=== PATIENT | male | born 1960 | race American Indian/Alaskan Native ===

== ENCOUNTER 2021-04-19 04:14 | Inpatient (IN) | payer MEDICAID ==
[2021-04-19] MEDS ORDERED: SODIUM CHLORIDE 0.9% 1000 ML 1,000 ML IV ONE ×2 (05:19→09:05)
[2021-04-19] MEDS ORDERED: PANTOPRAZOLE 40 MG INJ IV ONE (05:19)
--- NOTE | 2021-04-19 05:54 | XRay Report ---
CHEST 1 VIEW INDICATION: GI Bleed. COMPARISON: None FINDINGS: SUPPORT DEVICES: None. HEART: Within normal limits. LUNGS/PLEURA: Mild patchy left greater than right basilar airspace disease. ADDITIONAL FINDINGS: None. IMPRESSION: 1. Lung findings as above. Signer Name: Edu Snyder MD Signed: 04/19/2021 5:50 AM Workstation Name: [id number]
[2021-04-19 06:29] LABS: Hemoglobin 7.8 gm/dl (11.8-15.2); Mean Corpuscular HGB Conc 31 % (32-34); Mean Corpuscular Volume 87 fl (84-94); Platelet Count 138 K/mm3 (140-440); Red Blood Count 2.86 M/mm3 (3.65-5.03); Red Cell Distribution Width 18.9 % (13.2-15.2)
[2021-04-19 06:34] LABS: INR 1.37 (0.87-1.13)
[2021-04-19 06:47] LABS: Alanine Aminotransferase 22 units/L (7-56); Albumin 2.3 g/dL (3.9-5); BUN/Creatinine Ratio 13; Blood Urea Nitrogen 12 mg/dL (9-20); Hemolysis Index 3
[2021-04-19 07:08] LABS: Basophils % (Manual) 0 % (0.0-1.8); Eosinophils % (Manual) 0 % (0.0-4.3); Total Cells Counted 100
[2021-04-19 07:09] LABS: Hypochromasia Few; Poikilocytosis 1+; Target Cells 1+
[2021-04-19 07:10] LABS: Platelet Estimate Consistent w Auto
--- NOTE | 2021-04-19 07:23 | Emergency Department Report ---
ED GI Bleed HPI - General Chief complaint: GI Bleed Stated complaint: VOMITING BLOOD Time Seen by Provider: 04/19/21 07:11 Source: EMS Mode of arrival: Stretcher Limitations: Physical Limitation - History of Present Illness Initial comments: Patient is 61 years old male with past medical history of alcohol abuse, Wernicke's ataxia and hypertension. Patient brought to the emergency room via EMS from a local [place] [facility] for evaluation of upper GI bleed. EMS [place] [facility] staff reported to them that patient had to large amount of dark blo od vomitus x2 mixed with food particles and mucus. Patient was recently admitted to [facility] for metabolic encephalopathy and alcohol withdrawal treatment. Upon arrival to the ER patient is alert however patient is aggressive and stated that he does not want to talk to anyone. MD complaint: gross hematemesis -: Last night Severity scale (0 -10): 0 - Related Data Allergies Allergy/AdvReac Type Severity Reaction Status Date / Time No Known Allergies Allergy Verified 04/19/21 04:21 ED Review of Systems ROS: Stated complaint: VOMITING BLOOD Other details as noted in HPI Comment: Unobtainable due to pts medical conditions ED Past Medical Hx - Past Medical History Previous Medical History?: Yes Hx Hypertension: Yes - Surgical History Past Surgical History?: Yes ED Physical Exam - General Limitations: Physical Limitation General appearance: alert, in no apparent distress - Head Head exam: Present: atraumatic, normocephalic, normal inspection - Eye Eye exam: Present: normal appearance - ENT ENT exam: Present: mucous membranes dry - Neck Neck exam: Present: normal inspection, full ROM. Absent: tenderness, meningismus - Respiratory Respiratory exam: Present: normal lung sounds bilaterally - Cardiovascular Cardiovascular Exam: Present: tachycardia - GI/Abdominal GI/Abdominal exam: Present: soft, normal bowel sounds. Absent: distended, tenderness, guarding, rebound, rigid, organomegaly, mass, bruit, pulsatile mass, hernia - Extremities Exam Extremities exam: Present: normal inspection, full ROM, normal capillary refill - Psychiatric Psychiatric exam: Present: agitated - Skin Skin exam: Present: warm, intact, normal color ED Course Vital Signs 04/19/21 04:22 Temperature 98.6 F Pulse Rate 116 H Respiratory 16 Rate Blood Pressure 140/82 [Left] O2 Sat by Pulse 99 Oximetry ED Medical Decision Making - Lab Data Result diagrams: 04/19/21 06:02 04/19/21 06:02 - EKG Data -: EKG Interpreted by Nc EKG shows normal: sinus rhythm Rate: tachycardia - EKG Data Interpretation: no acute changes - Radiology Data Radiology results: report reviewed - Medical Decision Making Patient is 61 years old male with past medical history of alcohol abuse, Wernicke's ataxia and hypertension. Patient brought to the emergency room via EMS from a local [place] [facility] for evaluation of upper GI bleed. EMS stated that [place] [facility] staff reported to them that patient had to large amount of dark blood vomitus x2 mixed with food particles and mucus. Patient was recently admitted to [facility] for metabolic encephalopathy and alcohol withdrawal treatment. Upon arrival to the ER patient is alert however patient is aggressive and stated that he does not want to talk to anyone. No vomiting observed in the ER however patient does have some bloody mucus on his T-shirt. Patient started on normal saline, Protonix. Chest x-ray showed bilateral lower lobe infiltrate. Patient received Levaquin. COVID-19 test has been ordered also. Labs reviewed and showed leukocytosis of 24,000. His hemoglobin is 7.8 with platelets of 138. I discussed the patient with Dr. Heide Marin, test hole driller on-call and he stated that he will follow up with the patient. I discussed the patient with Dr. Gomez, he advised to admit the patient to Dr. Slade. Critical Care Time: Yes Critical care time in (mins) excluding proc time.: 35 Critical care attestation.: If time is entered above; I have spent that time in minutes in the direct care of this critically ill patient, excluding procedure time. ED Disposition Clinical Impression: GI bleed, Bilateral pneumonia Disposition: ADMITTED INPATIENT Is pt being admited?: Yes Condition: Stable Instructions: Bacterial Pneumonia (ED) Referrals: AURORA ROMO MD [Primary Care Provider] - 3-5 Days Forms: Accompanied Note
[2021-04-19] MEDS ORDERED: LORazepam 2 MG/ML VIAL IV ONE (09:12)
--- NOTE | 2021-04-19 11:25 | History and Physical Report ---
History of Present Illness Date of examination: 04/19/21 Date of admission: 04/19/21 Chief complaint: GI bleed History of present illness: Patient is 61 years old male with past medical history of alcohol abuse, Wernicke's ataxia and hypertension brought to the emergency room via EMS from a local [facility] for upper GI bleed. skilled nursing staff reported that patient had to large amount of dark blood vomitus x2 mixed with food particles and mucus. Patient was recently admitted to [facility] ICU for metabolic encephalopathy and alcohol withdrawal treatment. Upon arrival to the ER patient is alert however patient is aggressive and stated that he does not want to talk to anyone. In the ER Patient started on normal saline, Protonix. Chest x-ray showed bilateral lower lobe infiltrate. Patient received Levaquin. COVID-19 test has been ordered also. Labs reviewed and showed leukocytosis of 24,000. His hemoglobin is 7.8 with platelets of 138. Consulted cash management clerk on- call and admitted for further evaluation and mx. Review of System: Constitutional: no fever, no chills, no weight loss Ears, eyes, nose, mouth and throat: no nasal congestion, no nasal discharge, no sinus pressure, no vision change, no red eye. Neck: No neck pain or rigidity. Cardiovascular: No chest pain, no orthopnea, no palpitations, no leg swelling Respiratory: No shortness of breath, no cough, no congestion, no wheezing Gastrointestinal: no abdominal pain, no nausea, + bloody vomiting Genitourinary : no dysuria, no hematuria Musculoskeletal: no joint swelling or muscle ache Integumentary: no rash, no pruritis Neurological: no parathesias, no numbness, no tingling Endocrine: no cold or heat intolerance, no polyuria or polydipsia Hematologic/Lymphatic: no easy bruising, no easy bleeding, no gland swelling Allergic/Immunologic: no urticaria, no angioedema. Past History Past Medical History: hypertension Past Surgical History: Other (unable to get any history) Social history: alcohol abuse Family history: other (unknown) Medications and Allergies Allergies Allergy/AdvReac Type Severity Reaction Status Date / Time No Known Allergies Allergy Verified 04/19/21 04:21 Exam - Physical Exam Narrative exam: GENERAL: well-developed and well-nourished -[place]oc[place] male lying on bed appeared to be in no discomfort. HEENT: Normocephalic. Atraumatic. No conjunctival congestion or icterus. Patient has moist mucous membranes. NECK: Supple. Trachea midline. CHEST/LUNGS: Clear to auscultated bilaterally, breathing nonlabored. No wheezes crackles or rhonchi. HEART/CARDIOVASCULAR: Regular in rate and rhythm. S1 and S2 positive. ABDOMEN: Abdomen is soft, nontender. Patient has normal bowel sounds. SKIN: There is no rash. Warm and dry. NEURO: No focal motor deficit. Follows command. MUSCULOSKELETAL: No joint effusion or tenderness. EXTRIMITY: No edema, no cyanosis or clubbing. PSYCH: Cooperative - Constitutional Vitals: Temp Pulse Resp BP Pulse Ox 98.6 F 116 H 16 140/82 99 04/19/21 04:22 04/19/21 04:22 04/19/21 04:22 04/19/21 04:22 04/19/21 04:22 Results - Labs CBC & Chem 7: 04/20/21 22:37 04/20/21 03:40 Labs: Abnormal lab results 04/19/21 04/19/21 04/19/21 Range/Units 06:02 06:02 06:02 WBC 24.2 H (4.5-11.0) K/mm3 RBC 2.86 L (3.65-5.03) M/mm3 Hgb 7.8 L (11.8-15.2) gm/dl Hct 25.0 L (35.5-45.6) % MCH 27 L (28-32) pg MCHC 31 L (32-34) % RDW 18.9 H (13.2-15.2) % Plt Count 138 L (140-440) K/mm3 Seg Neuts % (Manual) 95.0 H (40.0-70.0) % Lymphocytes % (Manual) 4.0 L (13.4-35.0) % Seg Neutrophils # Man 23.0 H (1.8-7.7) K/mm3 Lymphocytes # (Manual) 1.0 L (1.2-5.4) K/mm3 PT 18.3 H (12.2-14.9) Sec. INR 1.37 H (0.87-1.13) Chloride 111.5 H (98-107) mmol/L Carbon Dioxide 19 L (22-30) mmol/L Glucose 132 H (75-100) mg/dL Lactic Acid (0.7-2.0) mmol/L Calcium 8.0 L (8.4-10.2) mg/dL Total Bilirubin 2.30 H (0.1-1.2) mg/dL Alkaline Phosphatase 132 H (35-129) units/L Albumin 2.3 L (3.9-5) g/dL 04/19/21 Range/Units 06:02 WBC (4.5-11.0) K/mm3 RBC (3.65-5.03) M/mm3 Hgb (11.8-15.2) gm/dl Hct (35.5-45.6) % MCH (28-32) pg MCHC (32-34) % RDW (13.2-15.2) % Plt Count (140-440) K/mm3 Seg Neuts % (Manual) (40.0-70.0) % Lymphocytes % (Manual) (13.4-35.0) % Seg Neutrophils # Man (1.8-7.7) K/mm3 Lymphocytes # (Manual) (1.2-5.4) K/mm3 PT (12.2-14.9) Sec. INR (0.87-1.13) Chloride (98-107) mmol/L Carbon Dioxide (22-30) mmol/L Glucose (75-100) mg/dL Lactic Acid 3.80 H* (0.7-2.0) mmol/L Calcium (8.4-10.2) mg/dL Total Bilirubin (0.1-1.2) mg/dL Alkaline Phosphatase (35-129) units/L Albumin (3.9-5) g/dL - Imaging and Cardiology Chest x-ray: report reviewed (Bilateral infiltrates left greater than right) Assessment and Plan --Acute GI bleed Continue to follow H&H, placed on PPI, GI consulted IV fluid hydration, follow clinically --h/o alcohol abuse, will place on as needed Ativan Place on folic acid and thiamine -- Bilateral pneumonia with COVID PUI Ordered empiric antibiotics, ordered for COVID PCR Order inflammatory markers --Elevated lactic acid, IV fluid Likely due to underlying infection --Sepsis, with leukocytosis elevated lactic acid and bilateral infiltrates Continue empiric antibiotics for now, ordered for COVID PCR --Anemia likely due to acute on chronic blood loss Follow H&H, transfuse as needed --DVT prophylaxis, SCD
[2021-04-19] MEDS ORDERED: LORazepam 2 MG/ML VIAL ONE (11:37)
[2021-04-19 15:07] LABS: Hematocrit 24.5 % (35.5-45.6); Hemoglobin 7.6 gm/dl (11.8-15.2)
[2021-04-19] MEDS: PANTOPRAZOLE 40 MG INJ IV SCH (22:51)
[2021-04-19] MEDS: D5W/0.9% NACL 1,000 ML IV SCH (22:51)
[2021-04-20] MEDS: cefTRIAXone/NS 1 GM/50 ML 1 GM/50 ML BAG IV SCH ×2 (00:23→10:16)
[2021-04-20 00:50] LABS: Hematocrit 23.5 % (35.5-45.6); Hemoglobin 7.3 gm/dl (11.8-15.2)
[2021-04-20] MEDS: AZITHROMYCIN/NS 500 MG/250 ML 500 MG/250 ML BAG IV SCH ×2 (01:03→10:19)
[2021-04-20 05:43] LABS: Hemoglobin 7.2 gm/dl (11.8-15.2); Mean Corpuscular HGB Conc 32 % (32-34); Mean Corpuscular Volume 87 fl (84-94); Platelet Count 113 K/mm3 (140-440); Red Blood Count 2.64 M/mm3 (3.65-5.03); Red Cell Distribution Width 18.9 % (13.2-15.2)
[2021-04-20 06:00] LABS: Blood Urea Nitrogen 10 mg/dL (9-20); Calcium 8.2 mg/dL (8.4-10.2); Hemolysis Index 4
[2021-04-20 06:03] LABS: BUN/Creatinine Ratio 20
[2021-04-20 06:45] LABS: Basophils % (Manual) 0 % (0.0-1.8); Eosinophils % (Manual) 0 % (0.0-4.3); Total Cells Counted 100
[2021-04-20 06:46] LABS: Hypochromasia 1+; Poikilocytosis 1+
[2021-04-20 06:47] LABS: Platelet Estimate Consistent w Auto; Target Cells 1+
[2021-04-20] MEDS: PANTOPRAZOLE 40 MG INJ IV SCH ×2 (10:17→22:00)
[2021-04-20 15:53] LABS: Hematocrit 23.3 % (35.5-45.6); Hemoglobin 7.4 gm/dl (11.8-15.2)
--- NOTE | 2021-04-20 17:36 | Progress Note ---
Assessment and Plan 61 years old male with past medical history of alcohol abuse, Wernicke's ataxia and hypertension brought to the emergency room via EMS from a local residential for upper GI bleed. In the ER Patient started on normal saline, Protonix. [facility]ah[facility] st x-ray showed bilateral lower lobe infiltrate. Labs reviewed and showed leukocytosis of 24,000. His hemoglobin is 7.8 with platelets of 138. Consulted script editor on-call and admitted for further evaluation and mx. Assessment and plan: --Acute GI bleed Continue to follow H&H, placed on PPI, GI consulted IV fluid hydration, follow clinically Planned for EGD tomorrow --h/o alcohol abuse, will place on as needed Ativan Place on folic acid and thiamine -- Bilateral pneumonia with COVID PUI Ordered empiric antibiotics, ordered for COVID PCR -pending follow inflammatory markers --Elevated lactic acid, IV fluid Likely due to underlying infection --Sepsis, with leukocytosis elevated lactic acid and bilateral infiltrates Continue empiric antibiotics for now, follow COVID 19 PCR --Anemia likely due to acute on chronic blood loss Follow H&H, transfuse as needed --DVT prophylaxis, SCD Daily clinical course: 04/20: Follow H&H, continue IV fluid, continue PPI. Follow COVID-19 PCR -if result positive then will initiate COVID-19 protocol. Plan for EGD tomorrow. Subjective Date of service: 04/20/21 Interval history: Patient seen and examined. Medical records and medication list reviewed. No acute event overnight noted by the RN. Plan for EGD tomorrow, pending COVID-19 PCR Objective - Exam Narrative Exam: GENERAL: well-developed and well-nourished -[place]ib[place] male lying on bed appeared to be in no discomfort. HEENT: Normocephalic. Atraumatic. No conjunctival congestion or icterus. Patient has moist mucous membranes. NECK: Supple. Trachea midline. CHEST/LUNGS: Clear to auscultated bilaterally, breathing nonlabored. No wheezes crackles or rhonchi. HEART/CARDIOVASCULAR: Regular in rate and rhythm. S1 and S2 positive. ABDOMEN: Abdomen is soft, nontender. Patient has normal bowel sounds. SKIN: There is no rash. Warm and dry. NEURO: No focal motor deficit. Follows command. MUSCULOSKELETAL: No joint effusion or tenderness. EXTRIMITY: No edema, no cyanosis or clubbing. PSYCH: Cooperative - Constitutional Vitals: Vital Signs - 12hr 04/20/21 04/20/21 04/20/21 05:45 06:00 06:24 Pulse Rate Respiratory Rate Blood Pressure 140/86 140/86 133/80 O2 Sat by Pulse 93 100 99 Oximetry 04/20/21 04/20/21 04/20/21 06:30 06:46 07:00 Pulse Rate 101 H 98 H 101 H Respiratory 19 15 15 Rate Blood Pressure 138/90 136/79 137/83 O2 Sat by Pulse 98 98 100 Oximetry 04/20/21 04/20/21 04/20/21 07:16 07:30 07:46 Pulse Rate 98 H 97 H 94 H Respiratory 17 15 14 Rate Blood Pressure 134/86 150/84 154/82 O2 Sat by Pulse 100 98 99 Oximetry 04/20/21 04/20/21 04/20/21 08:00 08:15 08:30 Pulse Rate Respiratory 18 22 16 Rate Blood Pressure 146/82 134/83 144/87 O2 Sat by Pulse 99 97 100 Oximetry 04/20/21 04/20/21 04/20/21 08:46 09:00 09:15 Pulse Rate Respiratory 19 13 18 Rate Blood Pressure 140/83 139/78 142/89 O2 Sat by Pulse 98 100 100 Oximetry 04/20/21 04/20/21 04/20/21 09:30 09:46 10:00 Pulse Rate Respiratory 16 22 16 Rate Blood Pressure 143/81 143/91 141/87 O2 Sat by Pulse 100 Oximetry 04/20/21 04/20/21 04/20/21 10:16 10:30 10:45 Pulse Rate Respiratory 16 14 13 Rate Blood Pressure 145/83 149/79 140/77 O2 Sat by Pulse Oximetry 04/20/21 04/20/21 04/20/21 11:01 11:15 11:31 Pulse Rate Respiratory 17 15 14 Rate Blood Pressure 140/76 136/80 129/80 O2 Sat by Pulse Oximetry - Labs CBC & Chem 7: 04/20/21 22:37 04/20/21 03:40 Labs: Abnormal lab results 04/19/21 04/20/21 04/20/21 Range/Units 17:47 00:20 00:20 WBC (4.5-11.0) K/mm3 RBC (3.65-5.03) M/mm3 Hgb 7.3 L (11.8-15.2) gm/dl Hct 23.5 L (35.5-45.6) % MCH (28-32) pg RDW (13.2-15.2) % Plt Count (140-440) K/mm3 Seg Neuts % (Manual) (40.0-70.0) % Lymphocytes % (Manual) (13.4-35.0) % Seg Neutrophils # Man (1.8-7.7) K/mm3 Lymphocytes # (Manual) (1.2-5.4) K/mm3 Potassium (3.6-5.0) mmol/L Chloride (98-107) mmol/L Carbon Dioxide (22-30) mmol/L Creatinine (0.8-1.3) mg/dL Glucose (75-100) mg/dL Lactic Acid 3.50 H* 2.50 H* (0.7-2.0) mmol/L Calcium (8.4-10.2) mg/dL 04/20/21 04/20/21 04/20/21 Range/Units 03:40 03:40 07:26 WBC 19.2 H (4.5-11.0) K/mm3 RBC 2.64 L (3.65-5.03) M/mm3 Hgb 7.2 L (11.8-15.2) gm/dl Hct 23.0 L (35.5-45.6) % MCH 27 L (28-32) pg RDW 18.9 H (13.2-15.2) % Plt Count 113 L (140-440) K/mm3 Seg Neuts % (Manual) 94.0 H (40.0-70.0) % Lymphocytes % (Manual) 4.0 L (13.4-35.0) % Seg Neutrophils # Man 18.0 H (1.8-7.7) K/mm3 Lymphocytes # (Manual) 0.8 L (1.2-5.4) K/mm3 Potassium 3.5 L (3.6-5.0) mmol/L Chloride 111.5 H (98-107) mmol/L Carbon Dioxide 19 L (22-30) mmol/L Creatinine 0.5 L (0.8-1.3) mg/dL Glucose 56 L (75-100) mg/dL Lactic Acid 2.20 H* (0.7-2.0) mmol/L Calcium 8.2 L (8.4-10.2) mg/dL 04/20/21 Range/Units 15:43 WBC (4.5-11.0) K/mm3 RBC (3.65-5.03) M/mm3 Hgb 7.4 L (11.8-15.2) gm/dl Hct 23.3 L (35.5-45.6) % MCH (28-32) pg RDW (13.2-15.2) % Plt Count (140-440) K/mm3 Seg Neuts % (Manual) (40.0-70.0) % Lymphocytes % (Manual) (13.4-35.0) % Seg Neutrophils # Man (1.8-7.7) K/mm3 Lymphocytes # (Manual) (1.2-5.4) K/mm3 Potassium (3.6-5.0) mmol/L Chloride (98-107) mmol/L Carbon Dioxide (22-30) mmol/L Creatinine (0.8-1.3) mg/dL Glucose (75-100) mg/dL Lactic Acid (0.7-2.0) mmol/L Calcium (8.4-10.2) mg/dL
[2021-04-20 23:55] LABS: Hematocrit 24.7 % (35.5-45.6); Hemoglobin 7.9 gm/dl (11.8-15.2)
[2021-04-21] MEDS: LORazepam 2 MG/ML VIAL IV PRN (01:55)
[2021-04-21] MEDS: D5W/0.9% NACL 1,000 ML IV SCH (04:48)
--- NOTE | 2021-04-21 08:43 | Consultation ---
DATE OF CONSULTATION: 04/20/2021 REFERRING PHYSICIAN: Dr. Yenny Hernandez. INDICATION: Upper GI bleeding. HISTORY OF PRESENT ILLNESS: A 61-year-old black male with history of alcohol abuse, Wernicke's ataxia as well as hypertension. The [facility] from [facility] with signs and symptoms of upper GI bleed. The patient reportedly had 2 dark hematemesis. This included this morning. He reported no bright red blood. No melena. The patient with no history of variceal bleeding or other issues of that kind in the past. The patient subsequently brought to the Emergency Room for further evaluation and GI consulted. PAST MEDICAL HISTORY: 1. Alcohol liver disease. 2. Wernicke's ataxia. 3. Hypertension. MEDICATIONS: Reviewed and updated in chart. ALLERGIES: No known drug allergies. SOCIAL HISTORY: Alcohol abuse in the past. FAMILY HISTORY: Negative for colon cancer, IBD, or liver disease. REVIEW OF SYSTEMS: GENERAL: Reports weakness. HEENT: Denies visual complaints or tinnitus. PULMONARY: Denies shortness of breath, chest pain. GASTROINTESTINAL: Reported hematemesis, none since in the Emergency Room. All points of 10-point review of systems otherwise negative. PHYSICAL EXAMINATION: VITAL SIGNS: Temperature of 98.7, pulse 77, respiration 18, blood pressure 140/90. GENERAL: Fairly nourished with no acute distress. HEENT: Pupils round and reactive. PULMONARY: Clear to auscultation bilaterally. CARDIOVASCULAR: Regular rate and rhythm. Normal S1, S2. ABDOMEN: Positive bowel sounds. SKIN: No obvious rashes. LABORATORY DATA: Pertinent for white count of 19, hemoglobin and hematocrit of 7.1 and 23, platelet count of 113. INR of 1.37. Sodium of 142, potassium 3.5, chloride 111, CO2 of 19, BUN and creatinine of 10 and 0.5. AST and ALT of 37 and 22 with an alkaline phosphatase of 132 and a total bilirubin of 2.3. ASSESSMENT: A 61-year-old male with a history of alcohol abuse in the past, now presents with hematemesis and signs of upper GI bleed. The patient is otherwise stable and no further bleeding since reported at facility. PLAN: 1. PPI IV b.i.d. 2. Follow hematocrit and transfuse as needed. 3. Clear liquid diet. 4. Based on progress, n.p.o. and EGD in a.m. 5. Further recommendation based on progress results of the above. TID: [id number] RECEIPT: [id number] ANÍBAL/SOMMER/DANNY GROVER
[2021-04-21] MEDS: PANTOPRAZOLE 40 MG INJ IV SCH ×2 (09:57→23:16)
[2021-04-21] MEDS: cefTRIAXone/NS 1 GM/50 ML 1 GM/50 ML BAG IV SCH (09:57)
[2021-04-21] MEDS: AZITHROMYCIN/NS 500 MG/250 ML 500 MG/250 ML BAG IV SCH (09:59)
[2021-04-21] MEDS ORDERED: WATER FOR IRRIG STERILE 250 ML BOTTLE IR ONE (12:25)
[2021-04-21] MEDS ORDERED: WATER FOR IRRIG STERILE 1,000 ML BOTTLE ONE (12:25)
[2021-04-21] MEDS ORDERED: LIDOCAINE MPF (2%) 20 MG/1 ML VIAL 5 ML ONE (13:28)
[2021-04-21] MEDS ORDERED: propofoL 200 MG/20 ML VIAL IV ONE ×3 (13:28→13:29)
--- NOTE | 2021-04-21 13:38 | Anesthesia Day of Surgery ---
Anesthesia Day of Surgery - Day of Surgery Patient Examined: Yes Patient H&P Reviewed: Yes Patient is NPO: Yes
--- NOTE | 2021-04-21 13:42 | Anesthesia Consultation ---
Anesthesia Consult and Med Hx Date of service: 04/21/21 - Airway Intubation Access Assessment: Probably Good (Unable to assess airway) - Pre-Operative Health Status ASA Pre-Surgery Classification: ASA3 Proposed Anesthetic Plan: MAC - Cardiovascular System Hx Hypertension: Yes - Central Nervous System Hx Neuromuscular Disorder: Yes (Wernicke's ataxia) Hx Psychiatric Problems: Yes - Gastrointestinal Hx Ulcer: Yes (GI Bleed) - Hematic Hx Anemia: Yes - Other Systems Hx Alcohol Use: Yes - Additional Comments Anesthesia Medical History Comments: Pt agitated and in restraints. halfway resident. Patient was recently admitted to [facility] ICU for metabolic encephalopathy and alcohol withdrawal treatment. COVID POSITIVE
--- NOTE | 2021-04-21 15:30 | Post Operative Note ---
Pre-op diagnosis: gi bleed Post-op diagnosis: same Findings: EGD: grade I-II varices w/o stigmata - possible healed M-W tear - mild gastritis - negative other Procedure: EGD Anesthesia: MAC Surgeon: TRISH RATLIFF Estimated blood loss: none Pathology: list Specimen disposition: to lab Condition: stable Disposition: floor
--- NOTE | 2021-04-21 15:39 | Post Anesthesia Evaluation ---
- Post Anesthesia Evaluation Patient Participated: Yes Airway Patent: Yes Stable Respiratory Function: Yes Nausea/Vomiting: No Temp > 96.8F: Yes Pain Manageable: Yes Adequeate Hydration: Yes Anesthesia Complications: No Block Receding Appropriately: Not Applicable Patient on Ventilator: No
--- NOTE | 2021-04-21 17:29 | Operative Report ---
DATE OF SURGERY: 04/21/2021 PROCEDURE: EGD. INDICATIONS: 1. Anemia. 2. Gastrointestinal bleed. MEDICATIONS: Propofol per PRIVATE BRANCH EXCHANGE OPERATOR. COMPLICATIONS: None. DESCRIPTION OF PROCEDURE: The patient was done as a case in the Emergency Room. The patient had the procedure discussed with him at length. All risks, complications, and benefits discussed, after which the patient signed for the procedure to be performed. The patient was placed in a left lateral decubitus position. A mouth block was placed in the patient's oral cavity. After adequate sedation with medications as above, endoscope was placed in the mouth and brought to the level of second portion of duodenum. Retroflexion view performed. The patient's vital signs remained stable throughout the procedure. FINDINGS: There was one column of grade 1-2 varices noted in the [id number] esophagus. No bleeding stigmata was noted. Small hiatal hernia and gastroesophageal junction at 40 cm from the gums. The GE junction showed a possibly healed Yesy-Davidson tear without obvious bleeding stigmata. The esophagus otherwise appeared to be normal. Mild gastritis noted in stomach. The stomach otherwise appeared to be normal. Duodenum appeared to be normal. Retroflexion view performed in the stomach showed no other pathology other than noted above. The patient tolerated the procedure well. No complications during the procedure. IMPRESSION: 1. 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 2. Possibly healed Yesy-Davidson tear. 3. Mild gastritis. 4. Otherwise normal EGD. RECOMMENDATIONS: 1. PPI everyday. 2. Advance diet. 3. If H and H stable in a.m., okay to discharge from a GI standpoint. 4. We will follow. TID: [id number] RECEIPT: [id number] CAB/ARV/IQB MTDD
--- NOTE | 2021-04-21 17:32 | Consultation ---
History of Present Illness - Reason for Consult Consult date: 04/21/21 COVID-19 Requesting physician: PAVAN CORDOVA - History of Present Illness The patient is a 61-year-old male with alcohol abuse, Wernicke's encephalopathy, hypertension was admitted from the retirement due to upper GI bleed. Chest x- ray showed bilateral pneumonia, COVID-19 test came back positive, hence infectious diseases was consulted. Labs revealed leukocytosis with WBC 24.2, anemia with hemoglobin of 7.8, platelets 113. Lactic acidosis. ID was consulted for COVID-19. Patient is on room air. 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 Review of Systems: reviewed in the chart, unable to obtain, minimize risk of transmission Past History Past Medical History: hypertension Past Surgical History: Other (unable to get any history) Social history: alcohol abuse Family history: other (unknown) Medications and Allergies Allergies Allergy/AdvReac Type Severity Reaction Status Date / Time No Known Allergies Allergy Verified 04/19/21 04:21 Active Meds: Active Medications Ascorbic Acid (Ascorbic Acid 500 Mg Tab) 1,000 mg PO BID RICO Cholecalciferol (Cholecalciferol (Vit D3) 5,000 Unit Tab) 5,000 unit PO DAILY RICO Dextrose/Sodium Chloride (D5ns) 1,000 mls @ 75 mls/hr IV DIRECT RICO Last Admin: 04/21/21 04:48 Dose: 75 mls/hr Azithromycin (Zithromax/Ns) 500 mg in 250 mls @ 250 mls/hr IV Q24HR RICO Stop: 04/23/21 10:59 Last Admin: 04/21/21 09:59 Dose: 250 mls/hr Ceftriaxone Sodium (Rocephin/Ns 2 Gm/100 Ml) 2 gm in 100 mls @ 200 mls/hr IV Q24H RICO; Protocol Stop: 04/23/21 10:29 Lorazepam (Lorazepam 2 Mg/Ml Vial) 2 mg IV Q4H PRN PRN Reason: Agitation Last Admin: 04/21/21 01:55 Dose: 2 mg Pantoprazole Sodium (Pantoprazole 40 Mg Inj) 40 mg IV BID RICO Last Admin: 04/21/21 09:57 Dose: 40 mg Physical Examination - Physical Exam Narrative exam: Physical Exam (reviewed in chart to minimize risk of transmission) Constitutional: deferred Head, Ears, Nose: deferred Eyes: deferred Neck: deferred Oral: deferred Cardiovascular: deferred Respiratory: deferred GI: deferred Musculoskeletal: deferred Skin: deferred Hem/Lymphatic: deferred Psych: deferred Neurological: deferred - Constitutional Vitals: Vital Signs Temp Pulse Resp BP Pulse Ox 98.7 F 100 H 20 122/86 100 04/21/21 12:35 04/21/21 16:31 04/21/21 16:31 04/21/21 16:31 04/21/21 16:31 Temperature -Last 24 Hours Temperature 98.7 F Results - Labs CBC & Chem 7: 04/20/21 22:37 04/20/21 03:40 Labs: Abnormal lab results 04/20/21 04/20/21 Range/Units 08:20 22:37 Hgb 7.9 L (11.8-15.2) gm/dl Hct 24.7 L (35.5-45.6) % Coronavirus (PCR) Positive A (Negative) - Imaging and Cardiology Chest x-ray: report reviewed, image reviewed (mild patchy R airspace disease) Assessment and Plan Cultures: SARS CoV2 PCR: Positive 04/19/2021 blood culture: No growth A/P: 61-year-old male with alcohol abuse, Wernicke's encephalopathy, hypertension was admitted from the retirement due to upper GI bleed: #Bilateral pneumonia: Possibly aspiration and COVID-19 #Acute GI bleed, status post EGD with evidence of varices, healed Yesy-Davidson tear and mild gastritis. #Sepsis: Secondary to above #Acute blood loss anemia Recs: Not hypoxic, no indication for steroids or Remdesivir Continue empiric antibiotics for possible aspiration pneumonia ordered CRP, D-dimer, ferritin, procalcitonin Norman Miguel MD, FACP, [facility] O: [phone] F: [phone]
--- NOTE | 2021-04-21 17:48 | Progress Note ---
Assessment and Plan 61 years old male with past medical history of alcohol abuse, Wernicke's ataxia and hypertension brought to the emergency room [facility] for [facility] GI bleed. In the ER Patient started on normal saline, Protonix. Zahra st x-ray showed bilateral lower lobe infiltrate. Labs reviewed and showed leukocytosis of 24,000. His hemoglobin is 7.8 with platelets of 138. Consulted documentum consultant on-call and admitted for further evaluation and mx. Assessment and plan: --Acute GI bleed Continue to follow H&H, placed on PPI, GI consulted IV fluid hydration, follow clinically s/p EGD: with evidence of varices, healed Yesy-Davidson tear and mild gastritis. --h/o alcohol abuse, will place on as needed Ativan Place on folic acid and thiamine -- Bilateral pneumonia with COVID and aspiration PNA cont empiric antibiotics, +ve for COVID follow inflammatory markers --COVID 19 positive patient on RA, ID consulted Not a candidate for dexamethasone and remdesivir --Elevated lactic acid, IV fluid Likely due to underlying infection --Sepsis, with leukocytosis elevated lactic acid and bilateral infiltrates Continue empiric antibiotics for now, follow COVID 19 PCR --Anemia likely due to acute on chronic blood loss Follow H&H, transfuse as needed --DVT prophylaxis, SCD Daily clinical course: 04/20: Follow H&H, continue IV fluid, continue PPI. Follow COVID-19 PCR -if result positive then will initiate COVID-19 protocol. Plan for EGD tomorrow. 04/21: status post EGD with evidence of varices, healed Yesy-Davidson tear and mild gastritis. Cont PPI. Positive for COVID 19, ID consulted. Pt on RA, cont iv abx. Subjective Date of service: 04/21/21 Interval history: Patient seen and examined. Medical records and medication list reviewed. No acute event overnight noted by the RN. s/p EGD, +ve COVID-19 PCR Objective - Exam Narrative Exam: GENERAL: well-developed and well-nourished -[place] male lying on bed appeared to be in no discomfort. HEENT: Normocephalic. Atraumatic. No conjunctival congestion or icterus. Patient has moist mucous membranes. NECK: Supple. Trachea midline. CHEST/LUNGS: Clear to auscultated bilaterally, breathing nonlabored. No wheezes crackles or rhonchi. HEART/CARDIOVASCULAR: Regular in rate and rhythm. S1 and S2 positive. ABDOMEN: Abdomen is soft, nontender. Patient has normal bowel sounds. SKIN: There is no rash. Warm and dry. NEURO: No focal motor deficit. Follows command. MUSCULOSKELETAL: No joint effusion or tenderness. EXTRIMITY: No edema, no cyanosis or clubbing. PSYCH: Cooperative - Constitutional Vitals: Vital Signs - 12hr 04/21/21 04/21/21 04/21/21 05:45 06:00 06:01 Temperature Pulse Rate 97 H 96 H 93 H Respiratory 13 18 17 Rate Blood Pressure 172/89 180/86 Blood Pressure 154/89 [Left] O2 Sat by Pulse 100 Oximetry 04/21/21 04/21/21 04/21/21 06:15 06:30 06:45 Temperature Pulse Rate 96 H 83 89 Respiratory 16 14 15 Rate Blood Pressure 154/89 165/73 140/80 Blood Pressure [Left] O2 Sat by Pulse 97 100 Oximetry 04/21/21 04/21/21 04/21/21 07:00 07:15 07:30 Temperature Pulse Rate 94 H 89 85 Respiratory 15 17 16 Rate Blood Pressure 142/103 146/81 165/75 Blood Pressure [Left] O2 Sat by Pulse 98 98 95 Oximetry 04/21/21 04/21/21 04/21/21 07:45 08:00 08:15 Temperature Pulse Rate 95 H 89 91 H Respiratory 18 15 16 Rate Blood Pressure 176/75 142/81 149/71 Blood Pressure [Left] O2 Sat by Pulse 98 97 97 Oximetry 04/21/21 04/21/21 04/21/21 08:30 08:45 09:00 Temperature Pulse Rate 91 H 93 H 89 Respiratory 17 12 16 Rate Blood Pressure 159/79 163/77 149/68 Blood Pressure [Left] O2 Sat by Pulse 97 100 96 Oximetry 04/21/21 04/21/21 04/21/21 09:15 09:30 09:45 Temperature Pulse Rate 93 H 91 H 85 Respiratory 16 18 17 Rate Blood Pressure 159/83 140/87 143/93 Blood Pressure [Left] O2 Sat by Pulse 97 98 96 Oximetry 04/21/21 04/21/21 04/21/21 10:01 10:15 10:31 Temperature Pulse Rate 88 91 H 93 H Respiratory 14 17 16 Rate Blood Pressure 136/87 135/82 156/84 Blood Pressure [Left] O2 Sat by Pulse 98 98 97 Oximetry 04/21/21 04/21/21 04/21/21 10:45 11:01 11:15 Temperature Pulse Rate 94 H 97 H 90 Respiratory 16 16 18 Rate Blood Pressure 135/86 139/82 148/85 Blood Pressure [Left] O2 Sat by Pulse 98 98 98 Oximetry 04/21/21 04/21/21 04/21/21 11:31 11:45 12:01 Temperature Pulse Rate 91 H 97 H 98 H Respiratory 15 18 17 Rate Blood Pressure 138/83 142/85 142/84 Blood Pressure [Left] O2 Sat by Pulse 97 98 98 Oximetry 04/21/21 04/21/21 04/21/21 12:15 12:31 12:35 Temperature 98.7 F Pulse Rate 95 H 101 H 96 H Respiratory 17 16 15 Rate Blood Pressure 145/89 153/94 153/94 Blood Pressure [Left] O2 Sat by Pulse 98 100 97 Oximetry 04/21/21 04/21/21 04/21/21 12:45 13:01 13:15 Temperature Pulse Rate 94 H 86 86 Respiratory 22 16 14 Rate Blood Pressure 151/87 141/85 138/81 Blood Pressure [Left] O2 Sat by Pulse 98 98 100 Oximetry 04/21/21 04/21/21 04/21/21 13:31 13:45 14:00 Temperature Pulse Rate 80 96 H 85 Respiratory 12 18 12 Rate Blood Pressure 135/84 141/87 108/74 Blood Pressure [Left] O2 Sat by Pulse 99 100 100 Oximetry 04/21/21 04/21/21 04/21/21 14:01 14:15 14:31 Temperature Pulse Rate 88 92 H 92 H Respiratory 17 21 20 Rate Blood Pressure 116/72 126/81 143/88 Blood Pressure [Left] O2 Sat by Pulse 98 98 97 Oximetry 04/21/21 04/21/21 04/21/21 14:45 15:01 15:15 Temperature Pulse Rate 92 H 82 81 Respiratory 16 16 16 Rate Blood Pressure 140/82 141/81 136/81 Blood Pressure [Left] O2 Sat by Pulse 97 99 97 Oximetry 04/21/21 04/21/21 04/21/21 15:31 15:45 16:01 Temperature Pulse Rate 85 94 H 96 H Respiratory 15 17 18 Rate Blood Pressure 140/85 130/88 136/76 Blood Pressure [Left] O2 Sat by Pulse 98 100 99 Oximetry 04/21/21 04/21/21 16:15 16:31 Temperature Pulse Rate 95 H 100 H Respiratory 19 20 Rate Blood Pressure 125/86 122/86 Blood Pressure [Left] O2 Sat by Pulse 99 100 Oximetry - Labs CBC & Chem 7: 04/21/21 18:21 04/21/21 18:21 Labs: Abnormal lab results 04/20/21 04/20/21 Range/Units 08:20 22:37 Hgb 7.9 L (11.8-15.2) gm/dl Hct 24.7 L (35.5-45.6) % Coronavirus (PCR) Positive A (Negative)
[2021-04-21 18:47] LABS: Hematocrit 26.7 % (35.5-45.6); Hemoglobin 8.5 gm/dl (11.8-15.2); Mean Corpuscular HGB Conc 32 % (32-34); Mean Corpuscular Volume 87 fl (84-94); Platelet Count 143 K/mm3 (140-440); Red Blood Count 3.08 M/mm3 (3.65-5.03); Red Cell Distribution Width 19.3 % (13.2-15.2)
[2021-04-21 19:04] LABS: Blood Urea Nitrogen 7 mg/dL (9-20); Calcium 8.8 mg/dL (8.4-10.2); Hemolysis Index 4
[2021-04-21 19:06] LABS: C-Reactive Protein 4.1 mg/dL (0.00-1.30)
[2021-04-21 19:07] LABS: C-Reactive Protein 4.1 mg/dL (0.00-1.30)
[2021-04-21 19:29] LABS: BUN/Creatinine Ratio 14
--- NOTE | 2021-04-21 22:21 | Cat Scan Report ---
CTA CHEST WITH CONTRAST INDICATION / CLINICAL INFORMATION: Pt has an elevated D-dimer. TECHNIQUE: Axial CT images were obtained through the chest after injection of 100 cc Omnipaque 350 IV contrast. 3 plane MIP and/or 3D reconstructions were produced. All CT scans at this location are per formed using CT dose reduction for ALARA by means of automated exposure control. COMPARISON: Chest x-ray 04/19/2021 FINDINGS: Exam is severely limited due to poor bolus timing. PULMONARY ARTERIES: No large central pulmonary emboli. THORACIC AORTA: No significant abnormality. HEART: No pericardial effusion. CORONARY ARTERY CALCIFICATION: Severe. MEDIASTINUM / EMIR: No significant abnormality. PLEURA: No pleural effusion. No pneumothorax. LUNGS: Scattered bilateral pulmonary opacities. Trace left pleural effusion. There are mild secretion s in the airways. ADDITIONAL FINDINGS: None. UPPER ABDOMEN: Scattered small hypodensities throughout the liver are nonspecific but may represent c ysts. SKELETAL STRUCTURES: Degenerative changes of the spine. No aggressive osseous lesion. IMPRESSION: 1. Exam is severely limited due to poor bolus timing. There is no large central pulmonary embolism id entified. 2. Scattered bilateral airspace opacities compatible with pneumonia. 3. Trace left pleural effusion. 4. Incidental findings as above. Signer Name: Idris Lai MD Signed: 04/21/2021 10:17 PM Workstation Name: [id number]
[2021-04-21] MEDS: ASCORBIC ACID 500 MG TAB PO SCH (23:16)
[2021-04-22] MEDS: LORazepam 2 MG/ML VIAL IV PRN ×3 (02:29→17:30)
[2021-04-22 08:10] LABS: Basophils # (Auto) 0.1 K/mm3 (0.0-0.1); Eosinophils # (Auto) 0.1 K/mm3 (0.0-0.4); Eosinophils % (Auto) 2.2 % (0.0-4.3); Hematocrit 25.7 % (35.5-45.6); Hemoglobin 8.2 gm/dl (11.8-15.2); Lymphocytes # (Auto) 1.9 K/mm3 (1.2-5.4); Mean Corpuscular HGB Conc 32 % (32-34); Mean Corpuscular Volume 86 fl (84-94); Monocytes # (Auto) 0.6 K/mm3 (0.0-0.8); Monocytes % (Auto) 11.4 % (0.0-7.3); Platelet Count 136 K/mm3 (140-440); Red Cell Distribution Width 19.1 % (13.2-15.2)
[2021-04-22 08:24] LABS: BUN/Creatinine Ratio 15; Blood Urea Nitrogen 6 mg/dL (9-20); Calcium 8.6 mg/dL (8.4-10.2); Hemolysis Index 8
[2021-04-22] MEDS ORDERED: POTASSIUM CHLORIDE ER 20 MEQ TAB PO NR (09:30)
[2021-04-22] MEDS: CHOLECALCIFEROL (VIT D3) 5,000 UNIT TAB PO SCH (10:00)
[2021-04-22] MEDS: POTASSIUM CHLORIDE 10 MEQ 10 MEQ/100 ML BAG IV SCH ×4 (10:00→15:00)
[2021-04-22] MEDS ORDERED: SODIUM CHLORIDE 0.9% 1000 ML 1,000 ML ONE (10:04)
[2021-04-22] MEDS: PANTOPRAZOLE 40 MG INJ IV SCH (11:06)
[2021-04-22] MEDS: ASCORBIC ACID 500 MG TAB PO SCH ×2 (11:06→23:47)
[2021-04-22] MEDS: AZITHROMYCIN/NS 500 MG/250 ML 500 MG/250 ML BAG IV SCH (11:15)
[2021-04-22] MEDS: cefTRIAXone/NS 2 GM/100 ML 2 GM/100 ML BAG IV SCH (11:24)
--- NOTE | 2021-04-22 14:27 | Gastroenterology Progress Note ---
Assessment and Plan GI: signs UGI bleed, egd w/ Grade I-II varices w/o bleeding stigmata and healed M-W tear - continue PPI qd - follow h/h, transfuse as needed - diet as toelrated 2. Liver: etoh abuse - continue CIWA \ - if stable in am ok to dc from GI standpoint Subjective Date of service: 04/22/21 Interval history: - no signs GI bleed or other GI complaints overnight Objective - Constitutional Vitals: Temp Pulse Resp BP Pulse Ox 98.5 F 98 H 17 106/80 99 04/22/21 14:21 04/22/21 14:01 04/22/21 14:01 04/22/21 14:01 04/22/21 14:01 General appearance: no acute distress - EENT Eyes: PERRL - Respiratory Respiratory: bilateral: CTA - Cardiovascular Rhythm: regular Heart Sounds: Present: S1 & S2 - Gastrointestinal General gastrointestinal: Present: soft, non-tender, non-distended - Labs CBC & Chem 7: 04/22/21 07:13 04/22/21 07:13 Labs: Laboratory Results - last 24 hr 04/21/21 04/21/21 04/21/21 18:21 18:21 18:21 WBC 5.7 RBC 3.08 L Hgb 8.5 L Hct 26.7 L MCV 87 MCH 28 MCHC 32 RDW 19.3 H Plt Count 143 Lymph % (Auto) [place] % (Auto) Eos % (Auto) Baso % (Auto) Lymph # (Auto) [place] # (Auto) Eos # (Auto) Baso # (Auto) Seg Neutrophils % Seg Neutrophils # D-Dimer 1634.68 H Sodium 140 Potassium 3.3 L Chloride 107.3 H Carbon Dioxide 18 L Anion Gap 18 BUN 7 L Creatinine 0.5 L Estimated GFR > 60 BUN/Creatinine Ratio 14 Glucose 82 Calcium 8.8 Ferritin Lactate Dehydrogenase C-Reactive Protein Procalcitonin 04/21/21 04/21/21 04/21/21 18:21 18:21 18:21 WBC RBC Hgb Hct MCV MCH MCHC RDW Plt Count Lymph % (Auto) [place] % (Auto) Eos % (Auto) Baso % (Auto) Lymph # (Auto) [place] # (Auto) Eos # (Auto) Baso # (Auto) Seg Neutrophils % Seg Neutrophils # D-Dimer Sodium Potassium Chloride Carbon Dioxide Anion Gap BUN Creatinine Estimated GFR BUN/Creatinine Ratio Glucose 82 Calcium Ferritin 133.0 Lactate Dehydrogenase 266 H C-Reactive Protein 4.10 H Procalcitonin 1.31 04/21/21 04/21/21 04/21/21 18:21 18:21 18:21 WBC RBC Hgb Hct MCV MCH MCHC RDW Plt Count Lymph % (Auto) [place] % (Auto) Eos % (Auto) Baso % (Auto) Lymph # (Auto) [place] # (Auto) Eos # (Auto) Baso # (Auto) Seg Neutrophils % Seg Neutrophils # D-Dimer 1666.92 H Sodium Potassium Chloride Carbon Dioxide Anion Gap BUN Creatinine Estimated GFR BUN/Creatinine Ratio Glucose 82 Calcium Ferritin 132.0 Lactate Dehydrogenase 270 H C-Reactive Protein 4.10 H Procalcitonin 04/22/21 04/22/21 04/22/21 07:13 07:13 07:13 WBC 5.5 RBC 3.00 L Hgb 8.2 L Hct 25.7 L MCV 86 MCH 27 L MCHC 32 RDW 19.1 H Plt Count 136 L Lymph % (Auto) 35.0 [place] % (Auto) 11.4 H Eos % (Auto) 2.2 Baso % (Auto) 2.0 H Lymph # (Auto) 1.9 [place] # (Auto) 0.6 Eos # (Auto) 0.1 Baso # (Auto) 0.1 Seg Neutrophils % 49.4 Seg Neutrophils # 2.7 D-Dimer 1662.58 H Sodium 141 Potassium 3.1 L Chloride 107.6 H Carbon Dioxide 19 L Anion Gap 18 BUN 6 L Creatinine 0.4 L Estimated GFR > 60 BUN/Creatinine Ratio 15 Glucose 88 Calcium 8.6 Ferritin Lactate Dehydrogenase C-Reactive Protein 3.80 H Procalcitonin 04/22/21 04/22/21 07:13 07:13 WBC RBC Hgb Hct MCV MCH MCHC RDW Plt Count Lymph % (Auto) [place] % (Auto) Eos % (Auto) Baso % (Auto) Lymph # (Auto) [place] # (Auto) Eos # (Auto) Baso # (Auto) Seg Neutrophils % Seg Neutrophils # D-Dimer Sodium Potassium Chloride Carbon Dioxide Anion Gap BUN Creatinine Estimated GFR BUN/Creatinine Ratio Glucose Calcium Ferritin 125.9 Lactate Dehydrogenase C-Reactive Protein Procalcitonin 0.88
--- NOTE | 2021-04-22 15:27 | Progress Note ---
Assessment and Plan Cultures: SARS CoV2 PCR: Positive 04/19/2021 blood culture: No growth A/P: 61-year-old male with alcohol abuse, Wernicke's encephalopathy, hypertension was admitted from the residential due to upper GI bleed: #Bilateral pneumonia: Possibly aspiration and COVID-19 #Acute GI bleed, status post EGD with evidence of varices, healed Yesy-Davidson tear and mild gastritis. #Sepsis: Secondary to above. WBC normalized. #Acute blood loss anemia Recs: Not hypoxic, no indication for steroids or Remdesivir WBC improved, continue empiric antibiotics for possible aspiration pneumonia, if discharged, do PO Augmentin 875 mg BID x 3 days Norman Miguel MD, FACP, [facility] O: [phone] F: [phone] Subjective Date of service: 04/22/21 Interval history: No fever. D-dimer 1662, CRP 3.8, procalcitonin 0.88, ferritin 125, LDH 270 Objective - Exam Narrative Exam: Physical Exam (reviewed in chart to minimize risk of transmission) Constitutional: deferred Head, Ears, Nose: deferred Eyes: deferred Neck: deferred Oral: deferred Cardiovascular: deferred Respiratory: deferred GI: deferred Musculoskeletal: deferred Skin: deferred Hem/Lymphatic: deferred Psych: deferred Neurological: deferred - Constitutional Vitals: Vital Signs Temp Pulse Resp BP Pulse Ox 98.5 F 98 H 17 106/80 99 04/22/21 14:21 04/22/21 14:01 04/22/21 14:01 04/22/21 14:01 04/22/21 14:01 Temperature -Last 24 Hours Temperature 98.5 F Temperature 97.6 F Temperature 98.5 F - Labs CBC & Chem 7: 04/22/21 07:13 04/22/21 07:13 Labs: Abnormal lab results 04/21/21 04/21/21 04/21/21 Range/Units 18:21 18:21 18:21 RBC 3.08 L (3.65-5.03) M/mm3 Hgb 8.5 L (11.8-15.2) gm/dl Hct 26.7 L (35.5-45.6) % MCH (28-32) pg RDW 19.3 H (13.2-15.2) % Plt Count (140-440) K/mm3 [place] % (Auto) (0.0-7.3) % Baso % (Auto) (0.0-1.8) % D-Dimer 1634.68 H (0-234) ng/mlDDU Potassium 3.3 L (3.6-5.0) mmol/L Chloride 107.3 H (98-107) mmol/L Carbon Dioxide 18 L (22-30) mmol/L BUN 7 L (9-20) mg/dL Creatinine 0.5 L (0.8-1.3) mg/dL Lactate Dehydrogenase (91-180) units/L C-Reactive Protein (0.00-1.30) mg/dL 04/21/21 04/21/21 04/21/21 Range/Units 18:21 18:21 18:21 RBC (3.65-5.03) M/mm3 Hgb (11.8-15.2) gm/dl Hct (35.5-45.6) % MCH (28-32) pg RDW (13.2-15.2) % Plt Count (140-440) K/mm3 [place] % (Auto) (0.0-7.3) % Baso % (Auto) (0.0-1.8) % D-Dimer 1666.92 H (0-234) ng/mlDDU Potassium (3.6-5.0) mmol/L Chloride (98-107) mmol/L Carbon Dioxide (22-30) mmol/L BUN (9-20) mg/dL Creatinine (0.8-1.3) mg/dL Lactate Dehydrogenase 266 H 270 H (91-180) units/L C-Reactive Protein 4.10 H 4.10 H (0.00-1.30) mg/dL 04/22/21 04/22/21 04/22/21 Range/Units 07:13 07:13 07:13 RBC 3.00 L (3.65-5.03) M/mm3 Hgb 8.2 L (11.8-15.2) gm/dl Hct 25.7 L (35.5-45.6) % MCH 27 L (28-32) pg RDW 19.1 H (13.2-15.2) % Plt Count 136 L (140-440) K/mm3 [place] % (Auto) 11.4 H (0.0-7.3) % Baso % (Auto) 2.0 H (0.0-1.8) % D-Dimer 1662.58 H (0-234) ng/mlDDU Potassium 3.1 L (3.6-5.0) mmol/L Chloride 107.6 H (98-107) mmol/L Carbon Dioxide 19 L (22-30) mmol/L BUN 6 L (9-20) mg/dL Creatinine 0.4 L (0.8-1.3) mg/dL Lactate Dehydrogenase (91-180) units/L C-Reactive Protein 3.80 H (0.00-1.30) mg/dL
[2021-04-22] MEDS: PANTOPRAZOLE 40 MG TAB PO SCH (17:19)
--- NOTE | 2021-04-22 18:42 | Progress Note ---
Assessment and Plan Assessment and plan: #Acute GI bleed #Anemia likely due to acute on chronic blood loss Continue to follow H&H and transfuse if hemoglobin <7 IV fluid hydration, follow clinically Gastroenterology consulted; appreciate recs S/p EGD: with evidence of varices, healed Yesy-Davidson tear and mild ga stritis. Continue pantoprazole 40 mg daily #Alcohol dependence Unable to counseling aide patient on alcohol cessation given sedation after recent Ativan. Will reattempt tomorrow. Continue CIWA protocol Continue folic acid and thiamine #COVID-19 infection #Aspiration pneumonia versus pneumonitis Cont azithromycin 500 mg daily and Rocephin 2 g daily. Follow inflammatory markers every 2-3 days. Patient not currently a candidate for dexamethasone or remdesivir. Infectious disease consulted; appreciate recs. Continue to monitor. #Lactic acidosis Likely due to underlying infection Pending repeat stat lactic acidosis. Previously 2.2 #Sepsis In the setting of leukocytosis, elevated lactic acid, and bilateral infiltrates. Likely secondary to pneumonia. Continue azithromycin 500 mg daily and Rocephin 2 g daily #Advanced care planning -Disease education conducted, care plan discussed, diagnoses discussed, prognosis discussed, and patient acknowledges understanding with care plan -Time: +30 min Disposition Plan: Continue medical management Total Time Spent with Patient (Minutes): 45 minutes History Interval history: No acute events overnight. Hospitalist Physical - Constitutional Vitals: Temp Pulse Resp BP Pulse Ox 98.8 F 97 H 18 109/73 95 04/22/21 17:26 04/22/21 16:00 04/22/21 17:28 04/22/21 16:00 04/22/21 17:28 General appearance: Present: no acute distress - EENT Eyes: Present: PERRL, EOM intact ENT: hearing intact, clear oral mucosa, poor dentition - Neck Neck: Present: supple, normal ROM - Respiratory Respiratory effort: normal Respiratory: bilateral: diminished (On 2-3 L nasal cannula) - Cardiovascular Rhythm: regular Heart Sounds: Present: S1 & S2 - Extremities Extremities: no ischemia, pulses intact, pulses symmetrical, No edema, normal temperature, normal color Extremity abnormal: other (Stage I decubitus ulcer on left heel) Peripheral Pulses: within normal limits - Abdominal General gastrointestinal: soft, non-tender, non-distended, normal bowel sounds - Integumentary Integumentary: Present: clear, warm, dry - Psychiatric Psychiatric: other (Unable to assess given sedation) - Neurologic Neurologic: other (Unable to assess given sedation) - Allied Health Allied health notes reviewed: nursing Results - Labs CBC & Chem 7: 04/22/21 07:13 04/22/21 07:13 Labs: Laboratory Last Values WBC 5.5 K/mm3 (4.5-11.0) 04/22/21 07:13 RBC 3.00 M/mm3 (3.65-5.03) L 04/22/21 07:13 Hgb 8.2 gm/dl (11.8-15.2) L 04/22/21 07:13 Hct 25.7 % (35.5-45.6) L 04/22/21 07:13 MCV 86 fl (84-94) 04/22/21 07:13 MCH 27 pg (28-32) L 04/22/21 07:13 MCHC 32 % (32-34) 04/22/21 07:13 RDW 19.1 % (13.2-15.2) H 04/22/21 07:13 Plt Count 136 K/mm3 (140-440) L 04/22/21 07:13 Lymph % (Auto) 35.0 % (13.4-35.0) 04/22/21 07:13 [place] % (Auto) 11.4 % (0.0-7.3) H 04/22/21 07:13 Eos % (Auto) 2.2 % (0.0-4.3) 04/22/21 07:13 Baso % (Auto) 2.0 % (0.0-1.8) H 04/22/21 07:13 Lymph # (Auto) 1.9 K/mm3 (1.2-5.4) 04/22/21 07:13 [place] # (Auto) 0.6 K/mm3 (0.0-0.8) 04/22/21 07:13 Eos # (Auto) 0.1 K/mm3 (0.0-0.4) 04/22/21 07:13 Baso # (Auto) 0.1 K/mm3 (0.0-0.1) 04/22/21 07:13 Add Manual Diff Complete 04/20/21 03:40 Total Counted 100 04/20/21 03:40 Seg Neutrophils % 49.4 % (40.0-70.0) 04/22/21 07:13 Seg Neuts % (Manual) 94.0 % (40.0-70.0) H 04/20/21 03:40 Band Neutrophils % 0 % 04/20/21 03:40 Lymphocytes % (Manual) 4.0 % (13.4-35.0) L 04/20/21 03:40 Reactive Lymphs % (Man) 0 % 04/20/21 03:40 Monocytes % (Manual) 2.0 % (0.0-7.3) 04/20/21 03:40 Eosinophils % (Manual) 0 % (0.0-4.3) 04/20/21 03:40 Basophils % (Manual) 0 % (0.0-1.8) 04/20/21 03:40 Metamyelocytes % 0 % 04/20/21 03:40 Myelocytes % 0 % 04/20/21 03:40 Promyelocytes % 0 % 04/20/21 03:40 Blast Cells % 0 % 04/20/21 03:40 Nucleated RBC % Not Reportable 04/20/21 03:40 Seg Neutrophils # 2.7 K/mm3 (1.8-7.7) 04/22/21 07:13 Seg Neutrophils # Man 18.0 K/mm3 (1.8-7.7) H 04/20/21 03:40 Band Neutrophils # 0.0 K/mm3 04/20/21 03:40 Lymphocytes # (Manual) 0.8 K/mm3 (1.2-5.4) L 04/20/21 03:40 Abs React Lymphs (Man) 0.0 K/mm3 04/20/21 03:40 Monocytes # (Manual) 0.4 K/mm3 (0.0-0.8) 04/20/21 03:40 Eosinophils # (Manual) 0.0 K/mm3 (0.0-0.4) 04/20/21 03:40 Basophils # (Manual) 0.0 K/mm3 (0.0-0.1) 04/20/21 03:40 Metamyelocytes # 0.0 K/mm3 04/20/21 03:40 Myelocytes # 0.0 K/mm3 04/20/21 03:40 Promyelocytes # 0.0 K/mm3 04/20/21 03:40 Blast Cells # 0.0 K/mm3 04/20/21 03:40 WBC Morphology Not Reportable 04/20/21 03:40 Hypersegmented Neuts Not Reportable 04/20/21 03:40 Hyposegmented Neuts Not Reportable 04/20/21 03:40 Hypogranular Neuts Not Reportable 04/20/21 03:40 Smudge Cells Not Reportable 04/20/21 03:40 Toxic Granulation Not Reportable 04/20/21 03:40 Toxic Vacuolation Not Reportable 04/20/21 03:40 Dohle Bodies Not Reportable 04/20/21 03:40 Pelger-Huet Anomaly Not Reportable 04/20/21 03:40 Dixie Rods Not Reportable 04/20/21 03:40 Platelet Estimate Consistent w auto 04/20/21 03:40 Clumped Platelets Not Reportable 04/20/21 03:40 Plt Clumps, EDTA Not Reportable 04/20/21 03:40 Large Platelets Not Reportable 04/20/21 03:40 Giant Platelets Not Reportable 04/20/21 03:40 Platelet Satelliting Not Reportable 04/20/21 03:40 Plt Morphology Comment Not Reportable 04/20/21 03:40 RBC Morphology Not Reportable 04/20/21 03:40 Dimorphic RBCs Not Reportable 04/20/21 03:40 Polychromasia Not Reportable 04/20/21 03:40 Hypochromasia 1+ 04/20/21 03:40 Poikilocytosis 1+ 04/20/21 03:40 Anisocytosis Not Reportable 04/20/21 03:40 Microcytosis Not Reportable 04/20/21 03:40 Macrocytosis Not Reportable 04/20/21 03:40 Spherocytes Not Reportable 04/20/21 03:40 Pappenheimer Bodies Not Reportable 04/20/21 03:40 Sickle Cells Not Reportable 04/20/21 03:40 Target Cells 1+ 04/20/21 03:40 Tear Drop Cells Not Reportable 04/20/21 03:40 Ovalocytes Not Reportable 04/20/21 03:40 Helmet Cells Not Reportable 04/20/21 03:40 George-Diller Bodies Not Reportable 04/20/21 03:40 [place] Rings Not Reportable 04/20/21 03:40 [place] Cells Not Reportable 04/20/21 03:40 Bite Cells Not Reportable 04/20/21 03:40 Crenated Cell Not Reportable 04/20/21 03:40 Elliptocytes Not Reportable 04/20/21 03:40 Acanthocytes (Spur) Few 04/20/21 03:40 Rouleaux Not Reportable 04/20/21 03:40 Hemoglobin C Crystals Not Reportable 04/20/21 03:40 Schistocytes Not Reportable 04/20/21 03:40 Malaria parasites Not Reportable 04/20/21 03:40 Jaun Bodies Not Reportable 04/20/21 03:40 Hem Pathologist Commnt No 04/20/21 03:40 PT 18.3 Sec. (12.2-14.9) H 04/19/21 06:02 INR 1.37 (0.87-1.13) H 04/19/21 06:02 D-Dimer 1662.58 ng/mlDDU (0-234) H 04/22/21 07:13 Sodium 141 mmol/L (137-145) 04/22/21 07:13 Potassium 3.1 mmol/L (3.6-5.0) L 04/22/21 07:13 Chloride 107.6 mmol/L (98-107) H 04/22/21 07:13 Carbon Dioxide 19 mmol/L (22-30) L 04/22/21 07:13 Anion Gap 18 mmol/L 04/22/21 07:13 BUN 6 mg/dL (9-20) L 04/22/21 07:13 Creatinine 0.4 mg/dL (0.8-1.3) L 04/22/21 07:13 Estimated GFR > 60 ml/min 04/22/21 07:13 BUN/Creatinine Ratio 15 % 04/22/21 07:13 Glucose 88 mg/dL (75-100) 04/22/21 07:13 Lactic Acid 2.20 mmol/L (0.7-2.0) H* 04/20/21 07:26 Calcium 8.6 mg/dL (8.4-10.2) 04/22/21 07:13 Ferritin 125.9 ng/mL (30.0-300.0) 04/22/21 07:13 Total Bilirubin 2.30 mg/dL (0.1-1.2) H 04/19/21 06:02 AST 37 units/L (5-40) 04/19/21 06:02 ALT 22 units/L (7-56) 04/19/21 06:02 Alkaline Phosphatase 132 units/L (35-129) H 04/19/21 06:02 Lactate Dehydrogenase 266 units/L (91-180) H 04/21/21 18:21 Lactate Dehydrogenase 270 units/L (91-180) H 04/21/21 18:21 C-Reactive Protein 3.80 mg/dL (0.00-1.30) H 04/22/21 07:13 Total Protein 7.5 g/dL (6.3-8.2) 04/19/21 06:02 Albumin 2.3 g/dL (3.9-5) L 04/19/21 06:02 Albumin/Globulin Ratio 0.4 % 04/19/21 06:02 Lipase 47 units/L (13-60) 04/19/21 06:02 Procalcitonin 0.88 ng/mL (<0.15) 04/22/21 07:13 Coronavirus (PCR) Positive (Negative) A 04/20/21 08:20 Blood Type A POSITIVE 04/19/21 14:33 Antibody Screen Negative 04/19/21 14:33 Microbiology: Microbiology 04/19/21 14:33 Peripheral/Venous Blood Culture - Preliminary NO GROWTH AFTER 72 HOURS 04/19/21 14:33 Peripheral/Venous Blood Culture - Preliminary NO GROWTH AFTER 72 HOURS Valle/IV: Voiding Method Toilet Active Medications - Current Medications Current Medications: Generic Name Dose Route Start Last Admin Trade Name Freq PRN Reason Stop Dose Admin Ascorbic Acid 1,000 mg 04/21/21 22:00 04/22/21 11:06 Ascorbic Acid 500 Mg Tab PO 1,000 mg BID RICO Administration Cholecalciferol 5,000 unit 04/22/21 10:00 04/22/21 10:00 Cholecalciferol (Vit D3) 5,000 Unit Tab PO 5,000 unit DAILY RICO Administration Dextrose/Sodium Chloride 1,000 mls @ 75 mls/hr 04/19/21 12:00 04/21/21 04:48 D5ns IV 75 mls/hr DIRECT RICO Administration Azithromycin 500 mg in 250 mls @ 250 mls/hr 04/19/21 23:45 04/22/21 11:15 Zithromax/Ns IV 04/23/21 10:59 250 mls/hr Q24HR RICO Administration Ceftriaxone Sodium 2 gm in 100 mls @ 200 mls/hr 04/22/21 10:00 04/22/21 11:24 Rocephin/Ns 2 Gm/100 Ml IV 04/23/21 10:29 200 mls/hr Q24H RICO Administration Protocol Lorazepam 2 mg 04/19/21 23:48 04/22/21 17:30 Lorazepam 2 Mg/Ml Vial IV 2 mg Q4H PRN Administration Agitation Pantoprazole Sodium 40 mg 04/22/21 16:30 04/22/21 17:19 Pantoprazole 40 Mg Tab PO 40 mg BIDAC RICO Administration
[2021-04-22] MEDS: D5W/0.9% NACL 1,000 ML IV SCH (23:48)
--- NOTE | 2021-04-23 08:38 | Electrocardiograph Report ---
[facility] Test Date: 2021-04-20 Test Time: 00:41:24 Pat Name: CHELA GALE Department: Room: A368 Gender: M Mechanical Apprentice: ALMA ROSA : 1960 Requested By: INÉS CALDERA Order Number: [id number] Reading MD: Alis Lozada Measurements Intervals [place] Rate: 111 P: 92 MN: 158 QRS: 67 QRSD: 85 T: -18 QT: 386 QTc: 525 Interpretive Statements Sinus tachycardia Prolonged QT interval No previous ECG available for comparison Electronically Signed On 04-23-2021 8:37:35 EST by Alis Lozada
[2021-04-23] MEDS: ASCORBIC ACID 500 MG TAB PO SCH ×2 (09:38→22:40)
[2021-04-23] MEDS: AZITHROMYCIN/NS 500 MG/250 ML 500 MG/250 ML BAG IV SCH (09:38)
[2021-04-23] MEDS: PANTOPRAZOLE 40 MG TAB PO SCH ×2 (09:38→17:48)
[2021-04-23] MEDS: CHOLECALCIFEROL (VIT D3) 5,000 UNIT TAB PO SCH (09:38)
[2021-04-23] MEDS: LORazepam 2 MG/ML VIAL IV PRN ×2 (12:01→22:43)
[2021-04-23] MEDS: cefTRIAXone/NS 2 GM/100 ML 2 GM/100 ML BAG IV SCH (12:01)
--- NOTE | 2021-04-23 14:05 | Progress Note ---
Assessment and Plan Cultures: SARS CoV2 PCR: Positive 04/19/2021 blood culture: No growth A/P: 61-year-old male with alcohol abuse, Wernicke's encephalopathy, hypertension was [facility] the [facility] due to upper GI bleed: #Bilateral pneumonia: Possibly aspiration and COVID-19 #Acute GI bleed, status post EGD with evidence of varices, healed Yesy-Davidson tear and mild gastritis. #Sepsis: Secondary to above. WBC normalized. #Acute blood loss anemia Recs: -completed abx for pneumonia -On minimal oxygen with improvement, hold off on steroids and remdesivir Norman Miguel MD, FACP, [facility] O: [phone] F: [phone] Subjective Date of service: 04/23/21 Interval history: No fever, stable on oxygen at 2 L/min via nasal cannula. Objective - Exam Narrative Exam: Physical Exam (reviewed in chart to minimize risk of transmission) Constitutional: deferred Head, Ears, Nose: deferred Eyes: deferred Neck: deferred Oral: deferred Cardiovascular: deferred Respiratory: deferred GI: deferred Musculoskeletal: deferred Skin: deferred Hem/Lymphatic: deferred Psych: deferred Neurological: deferred - Constitutional Vitals: Vital Signs Temp Pulse Resp BP Pulse Ox 97.1 F L 95 H 18 113/81 98 04/23/21 11:39 04/23/21 11:39 04/23/21 11:39 04/23/21 11:39 04/23/21 11:39 Temperature -Last 24 Hours Temperature 97.1 F Temperature 98.0 F Temperature 97.7 F Temperature 98.8 F Temperature 98.5 F - Labs CBC & Chem 7: 04/22/21 07:13 04/22/21 07:13
[2021-04-23] MEDS ORDERED: POTASSIUM CHLORIDE ER 20 MEQ TAB PO ONE (14:25)
--- NOTE | 2021-04-23 14:27 | Progress Note ---
Assessment and Plan Assessment and plan: #Acute GI bleedstable #Anemia likely due to acute on chronic blood loss Continue to follow H&H and transfuse if hemoglobin <7 IV fluid hydration, follow clinically Gastroenterology consulted; appreciate recs S/p EGD: with evidence of varices, healed Yesy-Davidson tear and mild gastritis. Continue pantoprazole 40 mg daily #Alcohol dependence - Counseled patient on the importance of ETOH cessation. Assess patient's current ETOH consumption. Assisted with trying to arrange resources for patient to adequately work towards ETOH cessation. Patient expresses understanding. Continue CIWA protocol Continue folic acid and thiamine -Time: +15 mins #COVID-19 infection #Aspiration pneumonia versus pneumonitis Discontinue azithromycin 500 mg daily and Rocephin 2 g daily. Follow inflammatory markers every 2-3 days. Patient not currently a candidate for dexamethasone or remdesivir. Infectious disease consulted; appreciate recs. Continue to monitor. #Lactic acidosis Likely due to underlying infection Pending repeat stat lactic acidosis. Previously 2.2 #Sepsisresolved In the setting of leukocytosis, elevated lactic acid, and bilateral infiltrates. Likely secondary to pneumonia. Discontinue azithromycin 500 mg daily and Rocephin 2 g daily Blood cultures NGTD x72 hours #Advanced care planning -Disease education conducted, care plan discussed, diagnoses discussed, prognosis discussed, and patient acknowledges understanding with care plan -Time: +30 min Disposition Plan: Continue medical management Total Time Spent with Patient (Minutes): 45 minutes History Interval history: No acute events overnight. Hospitalist Physical - Constitutional Vitals: Temp Pulse Resp BP Pulse Ox 97.1 F L 95 H 18 113/81 98 04/23/21 11:39 04/23/21 11:39 04/23/21 11:39 04/23/21 11:39 04/23/21 11:39 General appearance: Present: no acute distress, cachectic, disheveled - EENT Eyes: Present: PERRL, EOM intact ENT: hearing intact, clear oral mucosa, poor dentition - Neck Neck: Present: supple, normal ROM - Respiratory Respiratory effort: normal Respiratory: bilateral: diminished (2 L nasal cannula) - Cardiovascular Rhythm: regular Heart Sounds: Present: S1 & S2 - Extremities Extremities: no ischemia, pulses intact, pulses symmetrical, No edema, normal te mperature, normal color, Full ROM Peripheral Pulses: within normal limits - Abdominal General gastrointestinal: soft, non-tender, non-distended, normal bowel sounds - Integumentary Integumentary: Present: clear, warm, dry - Psychiatric Psychiatric: appropriate mood/affect, cooperative - Neurologic Neurologic: CNII-XII intact, other (Actively tremulous) - Allied Health Allied health notes reviewed: nursing Results - Labs CBC & Chem 7: 04/22/21 07:13 04/22/21 07:13 Labs: Laboratory Last Values WBC 5.5 K/mm3 (4.5-11.0) 04/22/21 07:13 RBC 3.00 M/mm3 (3.65-5.03) L 04/22/21 07:13 Hgb 8.2 gm/dl (11.8-15.2) L 04/22/21 07:13 Hct 25.7 % (35.5-45.6) L 04/22/21 07:13 MCV 86 fl (84-94) 04/22/21 07:13 MCH 27 pg (28-32) L 04/22/21 07:13 MCHC 32 % (32-34) 04/22/21 07:13 RDW 19.1 % (13.2-15.2) H 04/22/21 07:13 Plt Count 136 K/mm3 (140-440) L 04/22/21 07:13 Lymph % (Auto) 35.0 % (13.4-35.0) 04/22/21 07:13 [place] % (Auto) 11.4 % (0.0-7.3) H 04/22/21 07:13 Eos % (Auto) 2.2 % (0.0-4.3) 04/22/21 07:13 Baso % (Auto) 2.0 % (0.0-1.8) H 04/22/21 07:13 Lymph # (Auto) 1.9 K/mm3 (1.2-5.4) 04/22/21 07:13 [place] # (Auto) 0.6 K/mm3 (0.0-0.8) 04/22/21 07:13 Eos # (Auto) 0.1 K/mm3 (0.0-0.4) 04/22/21 07:13 Baso # (Auto) 0.1 K/mm3 (0.0-0.1) 04/22/21 07:13 Add Manual Diff Complete 04/20/21 03:40 Total Counted 100 04/20/21 03:40 Seg Neutrophils % 49.4 % (40.0-70.0) 04/22/21 07:13 Seg Neuts % (Manual) 94.0 % (40.0-70.0) H 04/20/21 03:40 Band Neutrophils % 0 % 04/20/21 03:40 Lymphocytes % (Manual) 4.0 % (13.4-35.0) L 04/20/21 03:40 Reactive Lymphs % (Man) 0 % 04/20/21 03:40 Monocytes % (Manual) 2.0 % (0.0-7.3) 04/20/21 03:40 Eosinophils % (Manual) 0 % (0.0-4.3) 04/20/21 03:40 Basophils % (Manual) 0 % (0.0-1.8) 04/20/21 03:40 Metamyelocytes % 0 % 04/20/21 03:40 Myelocytes % 0 % 04/20/21 03:40 Promyelocytes % 0 % 04/20/21 03:40 Blast Cells % 0 % 04/20/21 03:40 Nucleated RBC % Not Reportable 04/20/21 03:40 Seg Neutrophils # 2.7 K/mm3 (1.8-7.7) 04/22/21 07:13 Seg Neutrophils # Man 18.0 K/mm3 (1.8-7.7) H 04/20/21 03:40 Band Neutrophils # 0.0 K/mm3 04/20/21 03:40 Lymphocytes # (Manual) 0.8 K/mm3 (1.2-5.4) L 04/20/21 03:40 Abs React Lymphs (Man) 0.0 K/mm3 04/20/21 03:40 Monocytes # (Manual) 0.4 K/mm3 (0.0-0.8) 04/20/21 03:40 Eosinophils # (Manual) 0.0 K/mm3 (0.0-0.4) 04/20/21 03:40 Basophils # (Manual) 0.0 K/mm3 (0.0-0.1) 04/20/21 03:40 Metamyelocytes # 0.0 K/mm3 04/20/21 03:40 Myelocytes # 0.0 K/mm3 04/20/21 03:40 Promyelocytes # 0.0 K/mm3 04/20/21 03:40 Blast Cells # 0.0 K/mm3 04/20/21 03:40 WBC Morphology Not Reportable 04/20/21 03:40 Hypersegmented Neuts Not Reportable 04/20/21 03:40 Hyposegmented Neuts Not Reportable 04/20/21 03:40 Hypogranular Neuts Not Reportable 04/20/21 03:40 Smudge Cells Not Reportable 04/20/21 03:40 Toxic Granulation Not Reportable 04/20/21 03:40 Toxic Vacuolation Not Reportable 04/20/21 03:40 Dohle Bodies Not Reportable 04/20/21 03:40 Pelger-Huet Anomaly Not Reportable 04/20/21 03:40 Dixie Rods Not Reportable 04/20/21 03:40 Platelet Estimate Consistent w auto 04/20/21 03:40 Clumped Platelets Not Reportable 04/20/21 03:40 Plt Clumps, EDTA Not Reportable 04/20/21 03:40 Large Platelets Not Reportable 04/20/21 03:40 Giant Platelets Not Reportable 04/20/21 03:40 Platelet Satelliting Not Reportable 04/20/21 03:40 Plt Morphology Comment Not Reportable 04/20/21 03:40 RBC Morphology Not Reportable 04/20/21 03:40 Dimorphic RBCs Not Reportable 04/20/21 03:40 Polychromasia Not Reportable 04/20/21 03:40 Hypochromasia 1+ 04/20/21 03:40 Poikilocytosis 1+ 04/20/21 03:40 Anisocytosis Not Reportable 04/20/21 03:40 Microcytosis Not Reportable 04/20/21 03:40 Macrocytosis Not Reportable 04/20/21 03:40 Spherocytes Not Reportable 04/20/21 03:40 Pappenheimer Bodies Not Reportable 04/20/21 03:40 Sickle Cells Not Reportable 04/20/21 03:40 Target Cells 1+ 04/20/21 03:40 Tear Drop Cells Not Reportable 04/20/21 03:40 Ovalocytes Not Reportable 04/20/21 03:40 Helmet Cells Not Reportable 04/20/21 03:40 George-[place] Bodies Not Reportable 04/20/21 03:40 [place] Rings Not Reportable 04/20/21 03:40 [place] Cells Not Reportable 04/20/21 03:40 Bite Cells Not Reportable 04/20/21 03:40 Crenated Cell Not Reportable 04/20/21 03:40 Elliptocytes Not Reportable 04/20/21 03:40 Acanthocytes (Spur) Few 04/20/21 03:40 Rouleaux Not Reportable 04/20/21 03:40 Hemoglobin C Crystals Not Reportable 04/20/21 03:40 Schistocytes Not Reportable 04/20/21 03:40 Malaria parasites Not Reportable 04/20/21 03:40 Jaun Bodies Not Reportable 04/20/21 03:40 Hem Pathologist Commnt No 04/20/21 03:40 PT 18.3 Sec. (12.2-14.9) H 04/19/21 06:02 INR 1.37 (0.87-1.13) H 04/19/21 06:02 D-Dimer 1662.58 ng/mlDDU (0-234) H 04/22/21 07:13 Sodium 141 mmol/L (137-145) 04/22/21 07:13 Potassium 3.1 mmol/L (3.6-5.0) L 04/22/21 07:13 Chloride 107.6 mmol/L (98-107) H 04/22/21 07:13 Carbon Dioxide 19 mmol/L (22-30) L 04/22/21 07:13 Anion Gap 18 mmol/L 04/22/21 07:13 BUN 6 mg/dL (9-20) L 04/22/21 07:13 Creatinine 0.4 mg/dL (0.8-1.3) L 04/22/21 07:13 Estimated GFR > 60 ml/min 04/22/21 07:13 BUN/Creatinine Ratio 15 % 04/22/21 07:13 Glucose 88 mg/dL (75-100) 04/22/21 07:13 Lactic Acid 2.20 mmol/L (0.7-2.0) H* 04/20/21 07:26 Calcium 8.6 mg/dL (8.4-10.2) 04/22/21 07:13 Ferritin 125.9 ng/mL (30.0-300.0) 04/22/21 07:13 Total Bilirubin 2.30 mg/dL (0.1-1.2) H 04/19/21 06:02 AST 37 units/L (5-40) 04/19/21 06:02 ALT 22 units/L (7-56) 04/19/21 06:02 Alkaline Phosphatase 132 units/L (35-129) H 04/19/21 06:02 Lactate Dehydrogenase 266 units/L (91-180) H 04/21/21 18:21 Lactate Dehydrogenase 270 units/L (91-180) H 04/21/21 18:21 C-Reactive Protein 3.80 mg/dL (0.00-1.30) H 04/22/21 07:13 Total Protein 7.5 g/dL (6.3-8.2) 04/19/21 06:02 Albumin 2.3 g/dL (3.9-5) L 04/19/21 06:02 Albumin/Globulin Ratio 0.4 % 04/19/21 06:02 Lipase 47 units/L (13-60) 04/19/21 06:02 Procalcitonin 0.88 ng/mL (<0.15) 04/22/21 07:13 Coronavirus (PCR) Positive (Negative) A 04/20/21 08:20 Blood Type A POSITIVE 04/19/21 14:33 Antibody Screen Negative 04/19/21 14:33 Microbiology: Microbiology 04/19/21 14:33 Peripheral/Venous Blood Culture - Preliminary NO GROWTH AFTER 72 HOURS 04/19/21 14:33 Peripheral/Venous Blood Culture - Preliminary NO GROWTH AFTER 72 HOURS Valle/IV: Voiding Method Bedside Commode Active Medications - Current Medications Current Medications: Generic Name Dose Route Start Last Admin Trade Name Freq PRN Reason Stop Dose Admin Ascorbic Acid 1,000 mg 04/21/21 22:00 04/23/21 09:38 Ascorbic Acid 500 Mg Tab PO 1,000 mg BID RICO Administration Cholecalciferol 5,000 unit 04/22/21 10:00 04/23/21 09:38 Cholecalciferol (Vit D3) 5,000 Unit Tab PO 5,000 unit DAILY RICO Administration Dextrose/Sodium Chloride 1,000 mls @ 75 mls/hr 04/19/21 12:00 04/22/21 23:48 D5ns IV 75 mls/hr DIRECT RICO Administration Lorazepam 2 mg 04/19/21 23:48 04/23/21 12:01 Lorazepam 2 Mg/Ml Vial IV 2 mg Q4H PRN Administration Agitation Pantoprazole Sodium 40 mg 04/22/21 16:30 04/23/21 09:38 Pantoprazole 40 Mg Tab PO 40 mg BIDAC RICO Administration
[2021-04-23 15:39] LABS: Blood Urea Nitrogen 6 mg/dL (9-20); Calcium 8.3 mg/dL (8.4-10.2); Hemolysis Index 3
[2021-04-23 15:48] LABS: BUN/Creatinine Ratio 12
--- NOTE | 2021-04-23 16:19 | Gastroenterology Progress Note ---
Assessment and Plan GI: signs UGI bleed, egd w/ Grade I-II varices w/o bleeding stigmata and healed M-W tear - continue PPI qd - h/h stable without signs bleeding since admission - follow h/h, transfuse as needed - diet as tolerated 2. Liver: etoh abuse - continue CIWA - other issues per primary team - when stable ok to dc from GI standpoint - will sign off, call if needed Subjective Date of service: 04/23/21 Interval history: - no GI issues overnight per staff Objective - Constitutional Vitals: Temp Pulse Resp BP Pulse Ox 97.1 F L 95 H 18 113/81 98 04/23/21 11:39 04/23/21 11:39 04/23/21 11:39 04/23/21 11:39 04/23/21 11:39 General appearance: no acute distress - EENT Eyes: PERRL - Respiratory Respiratory: bilateral: CTA - Cardiovascular Rhythm: regular Heart Sounds: Present: S1 & S2 - Gastrointestinal General gastrointestinal: Present: soft, non-tender, non-distended - Labs CBC & Chem 7: 04/22/21 07:13 04/23/21 15:07 Labs: Laboratory Results - last 24 hr 04/23/21 04/23/21 15:07 15:07 Sodium 142 Potassium 3.4 L Chloride 110.6 H Carbon Dioxide 19 L Anion Gap 16 BUN 6 L Creatinine 0.5 L Estimated GFR > 60 BUN/Creatinine Ratio 12 Glucose 118 H Lactic Acid 2.00 Calcium 8.3 L
[2021-04-23] MEDS ORDERED: POTASSIUM CHLORIDE ER 20 MEQ TAB PO SCH (17:00)
[2021-04-23] MEDS: POTASSIUM CHLORIDE 10 MEQ 10 MEQ/100 ML BAG IV SCH ×4 (18:22→23:55)
[2021-04-23] MEDS: D5W/0.9% NACL 1,000 ML IV SCH (22:43)
[2021-04-24 08:01] LABS: Hematocrit 25.2 % (35.5-45.6); Mean Corpuscular HGB Conc 32 % (32-34); Mean Corpuscular Volume 86 fl (84-94); Platelet Count 147 K/mm3 (140-440); Red Blood Count 2.94 M/mm3 (3.65-5.03)
[2021-04-24 08:27] LABS: Blood Urea Nitrogen 3 mg/dL (9-20); Calcium 8.6 mg/dL (8.4-10.2); Hemolysis Index 2
[2021-04-24 08:31] LABS: BUN/Creatinine Ratio 8
[2021-04-24 08:38] LABS: Red Cell Distribution Width 20.1 % (13.2-15.2)
[2021-04-24] MEDS: ASCORBIC ACID 500 MG TAB PO SCH ×2 (11:03→21:02)
[2021-04-24] MEDS: CHOLECALCIFEROL (VIT D3) 5,000 UNIT TAB PO SCH (11:04)
[2021-04-24] MEDS: PANTOPRAZOLE 40 MG TAB PO SCH ×2 (11:04→18:52)
[2021-04-24] MEDS: LORazepam 2 MG/ML VIAL IV PRN (11:07)
--- NOTE | 2021-04-24 13:29 | Progress Note ---
Assessment and Plan Cultures: SARS CoV2 PCR: Positive 04/19/2021 blood culture: No growth A/P: 61-year-old male with alcohol abuse, Wernicke's encephalopathy, [facility]: #Bilateral pneumonia: Possibly aspiration and COVID-19 #Acute GI bleed, status post EGD with evidence of varices, healed Yesy-Davidson tear and mild gastritis. #Sepsis: Secondary to above. WBC normalized. #Acute blood loss anemia Recs: -completed abx for pneumonia -On room air, hold off on steroids and remdesivir Will sign off. Please call with questions or changes in clinical status. Norman Miguel MD, FACP, [facility] O: [phone] F: [phone] Subjective Date of service: 04/24/21 Interval history: No fever, on room air. Objective - Exam Narrative Exam: Physical Exam (reviewed in chart to minimize risk of transmission) Constitutional: deferred Head, Ears, Nose: deferred Eyes: deferred Neck: deferred Oral: deferred Cardiovascular: deferred Respiratory: deferred GI: deferred Musculoskeletal: deferred Skin: deferred Hem/Lymphatic: deferred Psych: deferred Neurological: deferred - Constitutional Vitals: Vital Signs Temp Pulse Resp BP Pulse Ox 98.2 F 91 H 18 133/85 100 04/23/21 21:22 04/23/21 21:22 04/23/21 21:22 04/23/21 21:22 04/24/21 10:41 Temperature -Last 24 Hours Temperature 98.2 F - Labs CBC & Chem 7: 04/24/21 07:46 04/24/21 07:46 Labs: Abnormal lab results 04/23/21 04/24/21 04/24/21 Range/Units 15:07 07:46 07:46 WBC 3.9 L (4.5-11.0) K/mm3 RBC 2.94 L (3.65-5.03) M/mm3 Hgb 8.0 L (11.8-15.2) gm/dl Hct 25.2 L (35.5-45.6) % MCH 27 L (28-32) pg RDW 20.1 H (13.2-15.2) % Potassium 3.4 L 3.5 L (3.6-5.0) mmol/L Chloride 110.6 H 110.5 H (98-107) mmol/L Carbon Dioxide 19 L 19 L (22-30) mmol/L BUN 6 L 3 L (9-20) mg/dL Creatinine 0.5 L 0.4 L (0.8-1.3) mg/dL Glucose 118 H (75-100) mg/dL Calcium 8.3 L (8.4-10.2) mg/dL
[2021-04-24] MEDS: LACTULOSE 20 GM/30 ML ORAL LIQD PO SCH ×2 (14:50→21:02)
--- NOTE | 2021-04-24 15:20 | Progress Note ---
Assessment and Plan Assessment and plan: #Acute GI bleedstable #Anemia likely due to acute on chronic blood loss Continue to follow H&H and transfuse if hemoglobin <7 IV fluid hydration, follow clinically Gastroenterology consulted; appreciate recs S/p EGD: with evidence of varices, healed Yesy-Davidson tear and mild gastritis. Continue pantoprazole 40 mg daily #Reported history of decompensated ETOH cirrhosis #Possible hepatic encephalopathy - Patient's sister reports him being diagnosed with ETOH cirrhosis at [facility]. - Ordering RUQ u/s (limited) to assess for cirrhosis - Starting po lactulose 20 TID. Will titrate to 2-3 bowel movements daily. - Continue to monitor #Alcohol dependence - Counseled patient on the importance of ETOH cessation. Assess patient's current ETOH consumption. Assisted with trying to arrange resources for patient to adequately work towards ETOH cessation. Patient expresses understanding. Continue CIWA protocol Continue folic acid and thiamine -Time: +15 mins #COVID-19 infection #Aspiration pneumonia versus pneumonitis Discontinue azithromycin 500 mg daily and Rocephin 2 g daily. Follow inflammatory markers every 2-3 days. Patient not currently a candidate for dexamethasone or remdesivir. Infectious disease consulted; appreciate recs. Continue to monitor. #Lactic acidosis Likely due to underlying infection Pending repeat stat lactic acidosis. Previously 2.2 #Sepsisresolved In the setting of leukocytosis, elevated lactic acid, and bilateral infiltrates. Likely secondary to pneumonia. Discontinue azithromycin 500 mg daily and Rocephin 2 g daily Blood cultures NGTD x72 hours #Advanced care planning -Disease education conducted, care plan discussed, diagnoses discussed, prognosis discussed, and patient acknowledges understanding with care plan -Time: +30 min Disposition Plan: Continue medical management Total Time Spent with Patient (Minutes): 45 min History Interval history: No acute events overnight. Hospitalist Physical - Constitutional Vitals: Temp Pulse Resp BP Pulse Ox 98.2 F 91 H 18 133/85 100 04/23/21 21:22 04/23/21 21:22 04/23/21 21:22 04/23/21 21:22 04/24/21 10:41 General appearance: Present: no acute distress, cachectic, disheveled - EENT Eyes: Present: PERRL, EOM intact ENT: hearing intact, clear oral mucosa, poor dentition - Neck Neck: Present: supple, normal ROM - Respiratory Respiratory effort: normal Respiratory: bilateral: diminished - Cardiovascular Rhythm: regular Heart Sounds: Present: S1 & S2 - Extremities Extremities: no ischemia, pulses intact, pulses symmetrical, No edema, normal temperature, normal color, Full ROM Peripheral Pulses: within normal limits - Abdominal General gastrointestinal: soft, non-tender, non-distended, normal bowel sounds - Integumentary Integumentary: Present: clear, warm, dry - Psychiatric Psychiatric: other (unable to assess given encephalopathy) - Neurologic Neurologic: CNII-XII intact, moves all extremities - Allied Health Allied health notes reviewed: nursing Results - Labs CBC & Chem 7: 04/24/21 07:46 04/24/21 07:46 Labs: Laboratory Last Values WBC 3.9 K/mm3 (4.5-11.0) L 04/24/21 07:46 RBC 2.94 M/mm3 (3.65-5.03) L 04/24/21 07:46 Hgb 8.0 gm/dl (11.8-15.2) L 04/24/21 07:46 Hct 25.2 % (35.5-45.6) L 04/24/21 07:46 MCV 86 fl (84-94) 04/24/21 07:46 MCH 27 pg (28-32) L 04/24/21 07:46 MCHC 32 % (32-34) 04/24/21 07:46 RDW 20.1 % (13.2-15.2) H 04/24/21 07:46 Plt Count 147 K/mm3 (140-440) 04/24/21 07:46 Lymph % (Auto) Direct Mail Coordinator 04/24/21 07:46 Carson % (Auto) 11.4 % (0.0-7.3) H 04/22/21 07:13 Eos % (Auto) 2.2 % (0.0-4.3) 04/22/21 07:13 Baso % (Auto) 2.0 % (0.0-1.8) H 04/22/21 07:13 Lymph # (Auto) 1.9 K/mm3 (1.2-5.4) 04/22/21 07:13 Carson # (Auto) 0.6 K/mm3 (0.0-0.8) 04/22/21 07:13 Eos # (Auto) 0.1 K/mm3 (0.0-0.4) 04/22/21 07:13 Baso # (Auto) 0.1 K/mm3 (0.0-0.1) 04/22/21 07:13 Add Manual Diff Complete 04/20/21 03:40 Total Counted 100 04/20/21 03:40 Seg Neutrophils % Direct Mail Coordinator 04/24/21 07:46 Seg Neuts % (Manual) 94.0 % (40.0-70.0) H 04/20/21 03:40 Band Neutrophils % 0 % 04/20/21 03:40 Lymphocytes % (Manual) 4.0 % (13.4-35.0) L 04/20/21 03:40 Reactive Lymphs % (Man) 0 % 04/20/21 03:40 Monocytes % (Manual) 2.0 % (0.0-7.3) 04/20/21 03:40 Eosinophils % (Manual) 0 % (0.0-4.3) 04/20/21 03:40 Basophils % (Manual) 0 % (0.0-1.8) 04/20/21 03:40 Metamyelocytes % 0 % 04/20/21 03:40 Myelocytes % 0 % 04/20/21 03:40 Promyelocytes % 0 % 04/20/21 03:40 Blast Cells % 0 % 04/20/21 03:40 Nucleated RBC % Not Reportable 04/20/21 03:40 Seg Neutrophils # 2.7 K/mm3 (1.8-7.7) 04/22/21 07:13 Seg Neutrophils # Man 18.0 K/mm3 (1.8-7.7) H 04/20/21 03:40 Band Neutrophils # 0.0 K/mm3 04/20/21 03:40 Lymphocytes # (Manual) 0.8 K/mm3 (1.2-5.4) L 04/20/21 03:40 Abs React Lymphs (Man) 0.0 K/mm3 04/20/21 03:40 Monocytes # (Manual) 0.4 K/mm3 (0.0-0.8) 04/20/21 03:40 Eosinophils # (Manual) 0.0 K/mm3 (0.0-0.4) 04/20/21 03:40 Basophils # (Manual) 0.0 K/mm3 (0.0-0.1) 04/20/21 03:40 Metamyelocytes # 0.0 K/mm3 04/20/21 03:40 Myelocytes # 0.0 K/mm3 04/20/21 03:40 Promyelocytes # 0.0 K/mm3 04/20/21 03:40 Blast Cells # 0.0 K/mm3 04/20/21 03:40 WBC Morphology Not Reportable 04/20/21 03:40 Hypersegmented Neuts Not Reportable 04/20/21 03:40 Hyposegmented Neuts Not Reportable 04/20/21 03:40 Hypogranular Neuts Not Reportable 04/20/21 03:40 Smudge Cells Not Reportable 04/20/21 03:40 Toxic Granulation Not Reportable 04/20/21 03:40 Toxic Vacuolation Not Reportable 04/20/21 03:40 Dohle Bodies Not Reportable 04/20/21 03:40 Pelger-Huet Anomaly Not Reportable 04/20/21 03:40 Dixie Rods Not Reportable 04/20/21 03:40 Platelet Estimate Consistent w auto 04/20/21 03:40 Clumped Platelets Not Reportable 04/20/21 03:40 Plt Clumps, EDTA Not Reportable 04/20/21 03:40 Large Platelets Not Reportable 04/20/21 03:40 Giant Platelets Not Reportable 04/20/21 03:40 Platelet Satelliting Not Reportable 04/20/21 03:40 Plt Morphology Comment Not Reportable 04/20/21 03:40 RBC Morphology Not Reportable 04/20/21 03:40 Dimorphic RBCs Not Reportable 04/20/21 03:40 Polychromasia Not Reportable 04/20/21 03:40 Hypochromasia 1+ 04/20/21 03:40 Poikilocytosis 1+ 04/20/21 03:40 Anisocytosis Not Reportable 04/20/21 03:40 Microcytosis Not Reportable 04/20/21 03:40 Macrocytosis Not Reportable 04/20/21 03:40 Spherocytes Not Reportable 04/20/21 03:40 Pappenheimer Bodies Not Reportable 04/20/21 03:40 Sickle Cells Not Reportable 04/20/21 03:40 Target Cells 1+ 04/20/21 03:40 Tear Drop Cells Not Reportable 04/20/21 03:40 Ovalocytes Not Reportable 04/20/21 03:40 Helmet Cells Not Reportable 04/20/21 03:40 George-Kremmling Bodies Not Reportable 04/20/21 03:40 Herndon Rings Not Reportable 04/20/21 03:40 Neymar Cells Not Reportable 04/20/21 03:40 Bite Cells Not Reportable 04/20/21 03:40 Crenated Cell Not Reportable 04/20/21 03:40 Elliptocytes Not Reportable 04/20/21 03:40 Acanthocytes (Spur) Few 04/20/21 03:40 Rouleaux Not Reportable 04/20/21 03:40 Hemoglobin C Crystals Not Reportable 04/20/21 03:40 Schistocytes Not Reportable 04/20/21 03:40 Malaria parasites Not Reportable 04/20/21 03:40 Jaun Bodies Not Reportable 04/20/21 03:40 Hem Pathologist Commnt No 04/20/21 03:40 PT 18.3 Sec. (12.2-14.9) H 04/19/21 06:02 INR 1.37 (0.87-1.13) H 04/19/21 06:02 D-Dimer 1662.58 ng/mlDDU (0-234) H 04/22/21 07:13 Sodium 140 mmol/L (137-145) 04/24/21 07:46 Potassium 3.5 mmol/L (3.6-5.0) L 04/24/21 07:46 Chloride 110.5 mmol/L (98-107) H 04/24/21 07:46 Carbon Dioxide 19 mmol/L (22-30) L 04/24/21 07:46 Anion Gap 14 mmol/L 04/24/21 07:46 BUN 3 mg/dL (9-20) L 04/24/21 07:46 Creatinine 0.4 mg/dL (0.8-1.3) L 04/24/21 07:46 Estimated GFR > 60 ml/min 04/24/21 07:46 BUN/Creatinine Ratio 8 % 04/24/21 07:46 Glucose 97 mg/dL (75-100) 04/24/21 07:46 Lactic Acid 1.10 mmol/L (0.7-2.0) 04/23/21 21:38 Calcium 8.6 mg/dL (8.4-10.2) 04/24/21 07:46 Ferritin 125.9 ng/mL (30.0-300.0) 04/22/21 07:13 Total Bilirubin 2.30 mg/dL (0.1-1.2) H 04/19/21 06:02 AST 37 units/L (5-40) 04/19/21 06:02 ALT 22 units/L (7-56) 04/19/21 06:02 Alkaline Phosphatase 132 units/L (35-129) H 04/19/21 06:02 Lactate Dehydrogenase 266 units/L (91-180) H 04/21/21 18:21 Lactate Dehydrogenase 270 units/L (91-180) H 04/21/21 18:21 C-Reactive Protein 3.80 mg/dL (0.00-1.30) H 04/22/21 07:13 Total Protein 7.5 g/dL (6.3-8.2) 04/19/21 06:02 Albumin 2.3 g/dL (3.9-5) L 04/19/21 06:02 Albumin/Globulin Ratio 0.4 % 04/19/21 06:02 Lipase 47 units/L (13-60) 04/19/21 06:02 Procalcitonin 0.88 ng/mL (<0.15) 04/22/21 07:13 Coronavirus (PCR) Positive (Negative) A 04/20/21 08:20 Blood Type A POSITIVE 04/19/21 14:33 Antibody Screen Negative 04/19/21 14:33 Microbiology: Microbiology 04/19/21 14:33 Peripheral/Venous Blood Culture - Final NO GROWTH AFTER 5 DAYS 04/19/21 14:33 Peripheral/Venous Blood Culture - Final NO GROWTH AFTER 5 DAYS Valle/IV: Voiding Method Indwelling Catheter Active Medications - Current Medications Current Medications: Generic Name Dose Route Start Last Admin Trade Name Freq PRN Reason Stop Dose Admin Ascorbic Acid 1,000 mg 04/21/21 22:00 04/24/21 11:03 Ascorbic Acid 500 Mg Tab PO 1,000 mg BID RICO Administration Cholecalciferol 5,000 unit 04/22/21 10:00 04/24/21 11:04 Cholecalciferol (Vit D3) 5,000 Unit Tab PO 5,000 unit DAILY RICO Administration Dextrose/Sodium Chloride 1,000 mls @ 75 mls/hr 04/19/21 12:00 04/23/21 22:43 D5ns IV 75 mls/hr DIRECT RICO Administration Lactulose 20 gm 04/24/21 14:00 Lactulose 20 Gm/30 Ml Oral Liqd PO TID RICO Lorazepam 2 mg 04/19/21 23:48 04/24/21 11:07 Lorazepam 2 Mg/Ml Vial IV 2 mg Q4H PRN Administration Agitation Pantoprazole Sodium 40 mg 04/22/21 16:30 04/24/21 11:04 Pantoprazole 40 Mg Tab PO 40 mg BIDAC RICO Administration Nutrition/Malnutrition Assess - Dietary Evaluation Nutrition/Malnutrition Findings: Nutrition Notes Start: 04/24/21 10:36 Freq: Status: Active Protocol: Document 04/24/21 10:37 NELL (Rec: 04/24/21 11:18 NELL [id number]) Nutrition Notes Need for Assessment generated from: upsetter,MST Initial or Follow up Assessment Other Pertinent Diagnosis COVID-19, Pneumonia, Lactic ac , UGI bleed, EtOH dependence, heel ulcer. Current Diet GI Soft diet (since B 04/23), D Suppl (since L 04/24). Labs/Tests 04/24: K 3.5, Cl 110.5, CO2 19 , BUN 3, Crea 0.4. Pertinent Medications 04/24: Vit C, Vit D3, D5ns 1000 ml @ 75 ml/hr, others nutritionally unremarkable. Height 6 ft 1 in Weight 66.2 kg [place] Body Weight (kg) 83.63 BMI 19.2 Intake Prior to Admission Good Weight change and time frame Pt is unsure if has loss body weight recently. Weight Status Appropriate Subjective/Other Information RD consult for Skin and Malnutrition risk assessment. Pt shows no signs of concern for risk of malnutrition, other than EtOH dependence, at the time, according to Physical Assessment History notes. Pt presents an open ulcer in the heel. Endoscopy procedure to find GI bleeding source performed, Pt cleared from Gi stand point and diet advanced. Pt's PO intake of meals has been Good (100%), according to ADL notes. Percent of energy/protein needs met: Prescribed GI Soft Diet provides for energy/protein needs (2,000 Kcal/82 g) during LOS; additionally, Dietary Supplements will support wound healing processes with 190 Kcal and 5 g of protein. Burn Absent Trauma Absent GI Symptoms Other Food Allergy No Skin Integrity/Comment Open ulcer on the heel. Current % PO Good (75-100%) Minimum of two criteria No #1 Nutrition Diagnosis Increased nutrient needs ( specify in comment below) Comments: Protein to support wound healing processes. Etiology Uncertain, unspecified. As Evidenced by Signs and Symptoms Open wound in the heel. Is patient on ventilator? No Is Patient Ambulatory and/or Out of Bed Yes REE-([place]-ambulatory/OOB) [ 1990.144 [id number]] Kcal/Kg value to use for calculation 25 Approximate Energy Requirements Using 1655 kcal/Kg Calculation Used for Recommendations Kcal/kg Additional Notes Protein: 1.25-1.5 g/Kg; 83-99 g/day. Fluids: 1 ml/Kcal, or as per MD. Nutrition Intervention Change Diet Order: Continue GI Soft Diet, as per MD. Add Supplement/Snack (indicate name/kcal 28.8 g pkt Kody; BID. /protein ) Provides kCal: 190 Provides Protein (gm) 5 Goal #1 Support, through dietary supplementation, wound healing processes during LOS. Follow-Up By: 05/01/21 Additional Comments Continue monitoring food tolerance, %PO intake of meals , and BM.
[2021-04-24 16:36] LABS: Total Cells Counted 100
[2021-04-24 16:37] LABS: Anisocytosis 1+; Toxic Granulation 2+
[2021-04-24 16:38] LABS: Burr Cells 1+; Hypochromasia 2+; Ovalocytes 1+; Poikilocytosis 2+; Spherocytes 1+; Target Cells 1+
[2021-04-24 16:39] LABS: Platelet Clumps Few; Platelet Estimate Consistent w Auto; Schistocytes Few
[2021-04-25] MEDS: D5W/0.9% NACL 1,000 ML IV SCH (02:47)
[2021-04-25] MEDS: LORazepam 2 MG/ML VIAL IV PRN ×2 (02:47→22:32)
[2021-04-25] MEDS: PANTOPRAZOLE 40 MG TAB PO SCH ×2 (07:30→17:30)
[2021-04-25] MEDS: LACTULOSE 20 GM/30 ML ORAL LIQD PO SCH ×3 (08:00→22:24)
[2021-04-25] MEDS: ASCORBIC ACID 500 MG TAB PO SCH ×2 (10:00→22:24)
[2021-04-25] MEDS: CHOLECALCIFEROL (VIT D3) 5,000 UNIT TAB PO SCH (10:00)
[2021-04-25] MEDS ORDERED: POTASSIUM CHLORIDE ER 20 MEQ TAB PO ONE (15:26)
--- NOTE | 2021-04-25 15:44 | Progress Note ---
Assessment and Plan Assessment and plan: #Acute GI bleedstable #Anemia likely due to acute on chronic blood loss Continue to follow H&H and transfuse if hemoglobin <7 IV fluid hydration, follow clinically Gastroenterology consulted; appreciate recs S/p EGD: with evidence of varices, healed Yesy-Davidson tear and mild gastritis. Continue pantoprazole 40 mg daily #Reported history of decompensated ETOH cirrhosis #Possible hepatic encephalopathy - Patient's sister reports him being diagnosed with ETOH cirrhosis at . - Ordering RUQ u/s (limited) to assess for cirrhosis - continue po lactulose 20 TID. Will titrate to 2-3 bowel movements daily. - Continue to monitor #Alcohol dependence - Counseled patient on the importance of ETOH cessation. Assess patient's current ETOH consumption. Assisted with trying to arrange resources for patient to adequately work towards ETOH cessation. Patient expresses understanding. Continue CIWA protocol Continue folic acid and thiamine -Time: +15 mins #COVID-19 infection #Aspiration pneumonia versus pneumonitis Discontinue azithromycin 500 mg daily and Rocephin 2 g daily. Follow inflammatory markers every 2-3 days. Patient not currently a candidate for dexamethasone or remdesivir. Infectious disease consulted; appreciate recs. Continue to monitor. #Lactic acidosis Likely due to underlying infection Pending repeat stat lactic acidosis. Previously 2.2 #Sepsisresolved In the setting of leukocytosis, elevated lactic acid, and bilateral infiltrates. Likely secondary to pneumonia. Discontinue azithromycin 500 mg daily and Rocephin 2 g daily Blood cultures NGTD x72 hours #Advanced care planning -Disease education conducted, care plan discussed, diagnoses discussed, prognosis discussed, and patient acknowledges understanding with care plan -Time: +30 min Disposition Plan: Pending discharge tomorrow. Total Time Spent with Patient (Minutes): 45 min History Interval history: No acute events overnight. Hospitalist Physical - Constitutional Vitals: Temp Pulse Resp BP Pulse Ox 98.9 F 90 20 140/85 100 04/25/21 04:21 04/25/21 04:21 04/25/21 04:21 04/25/21 04:21 04/25/21 11:54 General appearance: Present: no acute distress, cachectic, disheveled - EENT Eyes: Present: PERRL, EOM intact ENT: hearing intact, clear oral mucosa, poor dentition - Neck Neck: Present: supple, normal ROM - Respiratory Respiratory effort: normal Respiratory: bilateral: CTA - Cardiovascular Rhythm: regular Heart Sounds: Present: S1 & S2 - Extremities Extremities: no ischemia, pulses intact, pulses symmetrical, No edema, normal temperature, normal color, Full ROM Peripheral Pulses: within normal limits - Abdominal General gastrointestinal: soft, non-tender, non-distended, normal bowel sounds - Integumentary Integumentary: Present: clear, warm, dry - Neurologic Neurologic: CNII-XII intact, moves all extremities - Allied Health Allied health notes reviewed: nursing Results - Labs CBC & Chem 7: 04/24/21 07:46 04/24/21 07:46 Labs: Laboratory Last Values WBC 3.9 K/mm3 (4.5-11.0) L 04/24/21 07:46 RBC 2.94 M/mm3 (3.65-5.03) L 04/24/21 07:46 Hgb 8.0 gm/dl (11.8-15.2) L 04/24/21 07:46 Hct 25.2 % (35.5-45.6) L 04/24/21 07:46 MCV 86 fl (84-94) 04/24/21 07:46 MCH 27 pg (28-32) L 04/24/21 07:46 MCHC 32 % (32-34) 04/24/21 07:46 RDW 20.1 % (13.2-15.2) H 04/24/21 07:46 Plt Count 147 K/mm3 (140-440) 04/24/21 07:46 Lymph % (Auto) Personal Financial Counselor 04/24/21 07:46 [place] % (Auto) 11.4 % (0.0-7.3) H 04/22/21 07:13 Eos % (Auto) 2.2 % (0.0-4.3) 04/22/21 07:13 Baso % (Auto) 2.0 % (0.0-1.8) H 04/22/21 07:13 Lymph # (Auto) 1.9 K/mm3 (1.2-5.4) 04/22/21 07:13 [place] # (Auto) 0.6 K/mm3 (0.0-0.8) 04/22/21 07:13 Eos # (Auto) 0.1 K/mm3 (0.0-0.4) 04/22/21 07:13 Baso # (Auto) 0.1 K/mm3 (0.0-0.1) 04/22/21 07:13 Add Manual Diff Complete 04/24/21 07:46 Total Counted 100 04/24/21 07:46 Seg Neutrophils % Personal Financial Counselor 04/24/21 07:46 Seg Neuts % (Manual) 48.0 % (40.0-70.0) 04/24/21 07:46 Band Neutrophils % 1.0 % 04/24/21 07:46 Lymphocytes % (Manual) 38.0 % (13.4-35.0) H 04/24/21 07:46 Reactive Lymphs % (Man) 0 % 04/24/21 07:46 Monocytes % (Manual) 10.0 % (0.0-7.3) H 04/24/21 07:46 Eosinophils % (Manual) 2.0 % (0.0-4.3) 04/24/21 07:46 Basophils % (Manual) 1.0 % (0.0-1.8) 04/24/21 07:46 Metamyelocytes % 0 % 04/24/21 07:46 Myelocytes % 0 % 04/24/21 07:46 Promyelocytes % 0 % 04/24/21 07:46 Blast Cells % 0 % 04/24/21 07:46 Nucleated RBC % Not Reportable 04/24/21 07:46 Seg Neutrophils # 2.7 K/mm3 (1.8-7.7) 04/22/21 07:13 Seg Neutrophils # Man 1.9 K/mm3 (1.8-7.7) 04/24/21 07:46 Band Neutrophils # 0.0 K/mm3 04/24/21 07:46 Lymphocytes # (Manual) 1.5 K/mm3 (1.2-5.4) 04/24/21 07:46 Abs React Lymphs (Man) 0.0 K/mm3 04/24/21 07:46 Monocytes # (Manual) 0.4 K/mm3 (0.0-0.8) 04/24/21 07:46 Eosinophils # (Manual) 0.1 K/mm3 (0.0-0.4) 04/24/21 07:46 Basophils # (Manual) 0.0 K/mm3 (0.0-0.1) 04/24/21 07:46 Metamyelocytes # 0.0 K/mm3 04/24/21 07:46 Myelocytes # 0.0 K/mm3 04/24/21 07:46 Promyelocytes # 0.0 K/mm3 04/24/21 07:46 Blast Cells # 0.0 K/mm3 04/24/21 07:46 WBC Morphology Not Reportable 04/24/21 07:46 Hypersegmented Neuts Not Reportable 04/24/21 07:46 Hyposegmented Neuts Not Reportable 04/24/21 07:46 Hypogranular Neuts Not Reportable 04/24/21 07:46 Smudge Cells Not Reportable 04/24/21 07:46 Toxic Granulation 2+ 04/24/21 07:46 Toxic Vacuolation Not Reportable 04/24/21 07:46 Dohle Bodies Not Reportable 04/24/21 07:46 Pelger-Huet Anomaly Not Reportable 04/24/21 07:46 Dixie Rods Not Reportable 04/24/21 07:46 Platelet Estimate Consistent w auto 04/24/21 07:46 Clumped Platelets Few 04/24/21 07:46 Plt Clumps, EDTA Not Reportable 04/24/21 07:46 Large Platelets Not Reportable 04/24/21 07:46 Giant Platelets Not Reportable 04/24/21 07:46 Platelet Satelliting Not Reportable 04/24/21 07:46 Plt Morphology Comment Not Reportable 04/24/21 07:46 RBC Morphology Not Reportable 04/24/21 07:46 Dimorphic RBCs Not Reportable 04/24/21 07:46 Polychromasia Few 04/24/21 07:46 Hypochromasia 2+ 04/24/21 07:46 Poikilocytosis 2+ 04/24/21 07:46 Anisocytosis 1+ 04/24/21 07:46 Microcytosis Not Reportable 04/24/21 07:46 Macrocytosis Not Reportable 04/24/21 07:46 Spherocytes 1+ 04/24/21 07:46 Pappenheimer Bodies Not Reportable 04/24/21 07:46 Sickle Cells Not Reportable 04/24/21 07:46 Target Cells 1+ 04/24/21 07:46 Tear Drop Cells Not Reportable 04/24/21 07:46 Ovalocytes 1+ 04/24/21 07:46 Helmet Cells Not Reportable 04/24/21 07:46 [place] Bodies Not Reportable 04/24/21 07:46 [place] Rings Not Reportable 04/24/21 07:46 Olar Cells 1+ 04/24/21 07:46 Bite Cells Not Reportable 04/24/21 07:46 Crenated Cell Not Reportable 04/24/21 07:46 Elliptocytes Not Reportable 04/24/21 07:46 Acanthocytes (Spur) 2+ 04/24/21 07:46 Rouleaux Not Reportable 04/24/21 07:46 Hemoglobin C Crystals Not Reportable 04/24/21 07:46 Schistocytes Few 04/24/21 07:46 Malaria parasites Not Reportable 04/24/21 07:46 Jaun Bodies Not Reportable 04/24/21 07:46 Hem Pathologist Commnt No 04/24/21 07:46 PT 18.3 Sec. (12.2-14.9) H 04/19/21 06:02 INR 1.37 (0.87-1.13) H 04/19/21 06:02 D-Dimer 1662.58 ng/mlDDU (0-234) H 04/22/21 07:13 Sodium 140 mmol/L (137-145) 04/24/21 07:46 Potassium 3.5 mmol/L (3.6-5.0) L 04/24/21 07:46 Chloride 110.5 mmol/L (98-107) H 04/24/21 07:46 Carbon Dioxide 19 mmol/L (22-30) L 04/24/21 07:46 Anion Gap 14 mmol/L 04/24/21 07:46 BUN 3 mg/dL (9-20) L 04/24/21 07:46 Creatinine 0.4 mg/dL (0.8-1.3) L 04/24/21 07:46 Estimated GFR > 60 ml/min 04/24/21 07:46 BUN/Creatinine Ratio 8 % 04/24/21 07:46 Glucose 97 mg/dL (75-100) 04/24/21 07:46 Lactic Acid 1.10 mmol/L (0.7-2.0) 04/23/21 21:38 Calcium 8.6 mg/dL (8.4-10.2) 04/24/21 07:46 Ferritin 125.9 ng/mL (30.0-300.0) 04/22/21 07:13 Total Bilirubin 2.30 mg/dL (0.1-1.2) H 04/19/21 06:02 AST 37 units/L (5-40) 04/19/21 06:02 ALT 22 units/L (7-56) 04/19/21 06:02 Alkaline Phosphatase 132 units/L (35-129) H 04/19/21 06:02 Lactate Dehydrogenase 266 units/L (91-180) H 04/21/21 18:21 Lactate Dehydrogenase 270 units/L (91-180) H 04/21/21 18:21 C-Reactive Protein 3.80 mg/dL (0.00-1.30) H 04/22/21 07:13 Total Protein 7.5 g/dL (6.3-8.2) 04/19/21 06:02 Albumin 2.3 g/dL (3.9-5) L 04/19/21 06:02 Albumin/Globulin Ratio 0.4 % 04/19/21 06:02 Lipase 47 units/L (13-60) 04/19/21 06:02 Procalcitonin 0.88 ng/mL (<0.15) 04/22/21 07:13 Nasal Screen MRSA (PCR) Negative (Negative) 04/23/21 Unknown Coronavirus (PCR) Positive (Negative) A 04/20/21 08:20 Blood Type A POSITIVE 04/19/21 14:33 Antibody Screen Negative 04/19/21 14:33 Microbiology: Microbiology 04/19/21 14:33 Peripheral/Venous Blood Culture - Final NO GROWTH AFTER 5 DAYS 04/19/21 14:33 Peripheral/Venous Blood Culture - Final NO GROWTH AFTER 5 DAYS Valle/IV: Voiding Method Indwelling Catheter Active Medications - Current Medications Current Medications: Generic Name Dose Route Start Last Admin Trade Name Freq PRN Reason Stop Dose Admin Ascorbic Acid 1,000 mg 04/21/21 22:00 04/24/21 21:02 Ascorbic Acid 500 Mg Tab PO 1,000 mg BID RICO Administration Cholecalciferol 5,000 unit 04/22/21 10:00 04/24/21 11:04 Cholecalciferol (Vit D3) 5,000 Unit Tab PO 5,000 unit DAILY RICO Administration Dextrose/Sodium Chloride 1,000 mls @ 75 mls/hr 04/19/21 12:00 04/25/21 02:47 D5ns IV 75 mls/hr DIRECT RICO Administration Lactulose 20 gm 04/24/21 14:00 04/24/21 21:02 Lactulose 20 Gm/30 Ml Oral Liqd PO 20 gm TID RICO Administration Lorazepam 2 mg 04/19/21 23:48 04/25/21 02:47 Lorazepam 2 Mg/Ml Vial IV 2 mg Q4H PRN Administration Agitation Pantoprazole Sodium 40 mg 04/22/21 16:30 04/24/21 18:52 Pantoprazole 40 Mg Tab PO 40 mg BIDAC RICO Administration Nutrition/Malnutrition Assess - Dietary Evaluation Nutrition/Malnutrition Findings: Nutrition Notes Start: 04/24/21 10:36 Freq: Status: Active Protocol: Document 04/24/21 10:37 NELL (Rec: 04/24/21 11:18 NELL [id number]) Nutrition Notes Need for Assessment generated from: facility examiner,MST Initial or Follow up Assessment Other Pertinent Diagnosis COVID-19, Pneumonia, Lactic ac , UGI bleed, EtOH dependence, heel ulcer. Current Diet GI Soft diet (since B 04/23), D Suppl (since L 04/24). Labs/Tests 04/24: K 3.5, Cl 110.5, CO2 19 , BUN 3, Crea 0.4. Pertinent Medications 04/24: Vit C, Vit D3, D5ns 1000 ml @ 75 ml/hr, others nutritionally unremarkable. Height 6 ft 1 in Weight 66.2 kg [place] Body Weight (kg) 83.63 BMI 19.2 Intake Prior to Admission Good Weight change and time frame Pt is unsure if has loss body weight recently. Weight Status Appropriate Subjective/Other Information RD consult for Skin and Malnutrition risk assessment. Pt shows no signs of concern for risk of malnutrition, other than EtOH dependence, at the time, according to Physical Assessment History notes. Pt presents an open ulcer in the heel. Endoscopy procedure to find GI bleeding source performed, Pt cleared from Gi stand point and diet advanced. Pt's PO intake of meals has been Good (100%), according to ADL notes. Percent of energy/protein needs met: Prescribed GI Soft Diet provides for energy/protein needs (2,000 Kcal/82 g) during LOS; additionally, Dietary Supplements will support wound healing processes with 190 Kcal and 5 g of protein. Burn Absent Trauma Absent GI Symptoms Other Food Allergy No Skin Integrity/Comment Open ulcer on the heel. Current % PO Good (75-100%) Minimum of two criteria No #1 Nutrition Diagnosis Increased nutrient needs ( specify in comment below) Comments: Protein to support wound healing processes. Etiology Uncertain, unspecified. As Evidenced by Signs and Symptoms Open wound in the heel. Is patient on ventilator? No Is Patient Ambulatory and/or Out of Bed Yes REE-([place]. Jeor-ambulatory/OOB) [ 1990.144 [id number]] Kcal/Kg value to use for calculation 25 Approximate Energy Requirements Using 1655 kcal/Kg Calculation Used for Recommendations Kcal/kg Additional Notes Protein: 1.25-1.5 g/Kg; 83-99 g/day. Fluids: 1 ml/Kcal, or as per MD. Nutrition Intervention Change Diet Order: Continue GI Soft Diet, as per MD. Add Supplement/Snack (indicate name/kcal 28.8 g pkt Kody; BID. /protein ) Provides kCal: 190 Provides Protein (gm) 5 Goal #1 Support, through dietary supplementation, wound healing processes during LOS. Follow-Up By: 05/01/21 Additional Comments Continue monitoring food tolerance, %PO intake of meals , and BM.
--- NOTE | 2021-04-25 16:00 | Discharge Summary ---
Providers - Providers Date of Admission: 04/19/21 09:30 Date of discharge: 04/25/21 Attending physician: CADEN SCHWAB MD 04/19/21 09:23 Consult to Physician [CONS] Stat Comment: Consulting Provider: TRISH RATLIFF Physician Instructions: Reason For Exam: Upper GI bleed 04/21/21 17:18 Consult to Physician [CONS] Routine Comment: Consulting Provider: RUDDY POOL Physician Instructions: Reason For Exam: covid positive [facility] Reason for admission: Acute upper GI bleed Condition: Stable Pertinent studies: Reviewed. Procedures: EGD. Hospital course: The patient is a 61-year-old male with past medical history of alcohol dependence complicated by Warnicke's ataxia and hypertension who was brought into the emergency department via EMS from a local assisted for acute upper GI bleed. The patient was recently discharged from an [facility] ICU after receiving treatment for acute metabolic encephalopathy and alcohol withdrawal. The patient was evaluated by gastroenterology who performed an EGD revealing grade 12 varices without any bleeding stigmata and a healed Yesy-Davidson tear. Their recommendations were to have the patient continue PPI daily and to monitor hemoglobins and transfuse as needed. The patient was initiated on CIWA protocol for alcohol withdrawal. The patient was found to be positive for COVID-19 infection; he was not a candidate for dexamethasone or remdesivir. Due to concerns for sepsis (likely secondary to COVID-19 infection), blood cultures were drawn and have been negative to date. Further conversation with the patient's sister reveals that he was diagnosed to have alcohol cirrhosis at [facility], and decision was made to initiate oral lactulose that will be titrated based off of 23 bowel movements. The patient has had significant improvement in his mentation, and is likely back to his baseline. The patient is medically clear for discharge. Disposition: [address] [place] [address] [facility] Final Discharge Diagnosis (Prints w/discharge instructions): Acute upper GI bleed, chronic blood loss anemia, decompensated alcohol cirrhosis, hepatic encephalopathy, alcohol dependence, COVID-19 infection, aspiration pneumonia, lactic acidosis, sepsis Time spent for discharge: 45 min Core Measure Documentation - Palliative Care Palliative Care/ Comfort Measures: Not Applicable - Core Measures Any of the following diagnoses?: none Exam - Constitutional Vitals: Temp Pulse Resp BP Pulse Ox 98.9 F 90 20 140/85 100 04/25/21 04:21 04/25/21 04:21 04/25/21 04:21 04/25/21 04:21 04/25/21 11:54 General appearance: Present: no acute distress, cachectic, disheveled - EENT Eyes: Present: PERRL, EOM intact ENT: hearing intact, clear oral mucosa, poor dentition, edentulous - Neck Neck: Present: supple, normal ROM - Respiratory Respiratory effort: normal Respiratory: bilateral: diminished - Cardiovascular Rhythm: regular Heart Sounds: Present: S1 & S2 - Extremities Extremities: no ischemia, pulses intact, pulses symmetrical, No edema, normal temperature, normal color, Full ROM Peripheral Pulses: within normal limits - Abdominal General gastrointestinal: Present: soft, non-tender, non-distended, normal bowel sounds Male genitourinary: Present: deferred - Rectal Rectal Exam: deferred - Integumentary Integumentary: Present: clear, warm, dry - Musculoskeletal Musculoskeletal: strength equal bilaterally - Psychiatric Psychiatric: other (mildly confused) - Neurologic Neurologic: CNII-XII intact, moves all extremities - Allied Health Allied health notes reviewed: nursing Plan Activity: advance as tolerated Diet: regular Additional Instructions: The patient is a 61-year-old male with past medical history of alcohol dependence complicated by Warnicke's ataxia and hypertension who was brought into the emergency department via EMS from a local assisted for acute upper GI bleed. The patient was recently discharged from an [facility] ICU after receiving treatment for acute metabolic encephalopathy and alcohol withdrawal. The patient was evaluated by gastroenterology who performed an EGD revealing grade 12 varices without any bleeding stigmata and a healed Yesy- Davidson tear. Their recommendations were to have the patient continue PPI daily and to monitor hemoglobins and transfuse as needed. The patient was initiated on CIWA protocol for alcohol withdrawal. The patient was found to be positive for COVID-19 infection; he was not a candidate for dexamethasone or remdesivir. Due to concerns for sepsis (likely secondary to COVID-19 infection), blood cultures were drawn and have been negative to date. Further conversation with the patient's sister reveals that he was diagnosed to have alcohol cirrhosis at [facility], and decision was made to initiate oral lactulose that will be titrated based off of 23 bowel movements. The patient has had significant improvement in his mentation, and is likely back to his baseline. The patient is medically clear for discharge. Care Plan Goals: Patient is medically cleared for discharge. Assessment: The patient is a 61-year-old male with past medical history of alcohol dependence complicated by Warnicke's ataxia and hypertension who was brought into the emergency department via EMS from a local assisted for acute upper GI bleed. The patient was recently discharged from an [facility] ICU after receiving treatment for acute metabolic encephalopathy and alcohol withdrawal. The patient was evaluated by gastroenterology who performed an EGD revealing grade 12 varices without any bleeding stigmata and a healed Yesy-Davidson tear. Their recommendations were to have the patient continue PPI daily and to monitor hemoglobins and transfuse as needed. The patient was initiated on CIWA protocol for alcohol withdrawal. The patient was found to be positive for COVID-19 infection; he was not a candidate for dexamethasone or remdesivir. Due to concerns for sepsis (likely secondary to COVID-19 infection), blood cultures were drawn and have been negative to date. Further conversation with the patient's sister reveals that he was diagnosed to have alcohol cirrhosis at [facility], and decision was made to initiate oral lactulose that will be titrated based off of 23 bowel movements. The patient has had significant improvement in his mentation, and is likely back to his baseline. The patient is medically clear for discharge. Follow up with: AURORA ROMO MD [Primary Care Provider] - 3-5 Days Forms: Accompanied Note Prescriptions: Pantoprazole [Protonix TAB] 40 mg PO BIDAC #60 tablet
[2021-04-26 05:41] VITALS: BP 129/74
== END 2021-04-26 09:45 | DRG 871 ==
LOC: ED 04:14 → 3A 09:30 → UNDODISIN 04-22 21:14
PROVIDERS: ADMIT Internal Medicine; ATTEND Student in an Organized Health Care Education/Training Program
PROC: 0DJ08ZZ Inspection of Upper Intestinal Tract, Via Natural or Artificial Opening Endoscopic (ICD-10-PCS; principal; 2021-04-21)
DX: A41.9 Sepsis, unspecified organism (principal); U07.1 COVID-19; J69.0 Pneumonitis due to inhalation of food and vomit; J12.82 Pneumonia due to coronavirus disease 2019; K29.71 Gastritis, unspecified, with bleeding; I85.11 Secondary esophageal varices with bleeding; I10 Essential (primary) hypertension; Y90.9 Presence of alcohol in blood, level not specified; D62 Acute posthemorrhagic anemia; F10.20 Alcohol dependence, uncomplicated; K72.90 Hepatic failure, unspecified without coma; K70.30 Alcoholic cirrhosis of liver without ascites; K44.9 Diaphragmatic hernia without obstruction or gangrene
CPT/HCPCS: 36415; 71045; 71275; 80048; 80053; 82140; 82728; 82947; 83615; 83690; 84145; 85007; 85014; 85018; 85025; 85027; 85379; 85610; 86140; 86850; 86900; 86901; 87040; 87641; 93005; G0378; J3490; J7120; Q0162; C9113; J0456; J0696; J2060; J2704; J3480; J7030; J7042; Q9967; U0003